=== PATIENT | female | born 1960 | race Caucasian/White ===

== ENCOUNTER 2018-02-26 14:55 | Observation (INO) | payer BC, SELFPAY ==
[2018-02-26] VITALS (23 sets, daily range): BP systolic 112–166; BP diastolic 70–110; PULSE 69–132; RESP 10–26; TEMP 36.4–37.1; O2SAT 92–99; BMI 31.1; BMI 29.4; BMI 29.5
--- NOTE | 2018-02-26 15:11 | EKG12_ITS ---
Test Reason : CP Blood Pressure : / mmHG Vent. Rate : 079 BPM Atrial Rate : 079 BPM P-R Int : 106 ms QRS Dur : 082 ms QT Int : 404 ms P-R-T Axes : 073 047 045 degrees QTc Int : 463 ms Sinus rhythm with sinus arrhythmia with short CO Nonspecific ST abnormality Abnormal ECG Confirmed by TAWANDA SALVADOR, QUIQUE ([id number]), editor at large KAREN WEEKS ([id number]) on 03/01/2018 2:31:33 PM Referred By: MICHAEL Confirmed By:QUIQUE NEFF MD
--- NOTE | 2018-02-26 15:13 | RAD_ITS ---
STUDY: X-RAY CHEST REASON FOR EXAM: Female, 58 years old. Chest pain. TECHNIQUE: Single AP portable view of the chest. COMPARISON: None. FINDINGS: EKG electrodes are seen. The lungs are clear and expanded. Scattered calcified granulomas. There is no demonstrated pleural abnormality. Normal size heart. Normal mediastinum and yen. Normal visualized pulmonary arteries. There is atherosclerotic tortuosity of the aortic arch and descending thoracic aorta. There are degenerative changes of the visualized thoracic spine. Normal visualized ribs, clavicles, and shoulders. There is no demonstrated abnormality of the visualized soft tissue structures of the upper abdomen. RAD/Chest 1 View (Portable) IMPRESSION: Normal x-ray examination of the chest. Electronically Signed: Monty Quiros MD at 15:34 EST Tel [phone], Service support ,
--- NOTE | 2018-02-26 15:16 | EKG12_ITS ---
Test Reason : REPEAT EKG Blood Pressure : / mmHG Vent. Rate : 077 BPM Atrial Rate : 077 BPM P-R Int : 136 ms QRS Dur : 084 ms QT Int : 418 ms P-R-T Axes : 060 032 047 degrees QTc Int : 473 ms Normal sinus rhythm Normal ECG Confirmed by TAWANDA SALVADOR, QUIQUE ([id number]), marketing editor KAREN WEEKS ([id number]) on 03/01/2018 2:31:17 PM Referred By: MICHAEL Confirmed By:QUIQUE NEFF MD
--- NOTE | 2018-02-26 15:19 | ED.DCSUM_ITS ---
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 She [place] in to [place] on [place]. Patient states she was at work around 11 this morning when she started feeling nauseated and lightheaded. After returning from lunch where she did not eat much because of her nausea, she started developing tingling in her left hand and some tightness in the left lower ribs. She left work to go back to her hotel but stated the pain started to come up into her left chest and EMS was called. Patient does report similar episodes in the past, but never this severe. She did have one episode where she fainted. She states she had a workup done but nothing was found. She denies ever having a prior heart cath or stress test. Past history is significant for hypertension. She does take a baby aspirin daily. Physical Examination: Vital signs reveal blood pressure 157/86, temperature 97.9, heart rate 84, respiratory rate 26, pulse ox 98% on room air. Patient is lying in bed. She is anxious. At time of my examination her respiratory rate is 18. Head neck examination reveals dry lips, but otherwise unremarkable. Heart is regular rate and rhythm. Lungs sounds are clear. Abdomen is soft nontender. Test Results: EKG is sinus at [address] depression in V4 and V5. Portable chest x-ray is unremarkable. CBC normal. Chemistry studies significant only for potassium 3.3. Glucose is 143. Troponin is less than 0.015. D-dimer 0.29. Emergency Department Course and Treatment: Patient had received aspirin and 1 sublingual nitro with EMS. Pain had increased from before after her initial nitro back up to an 8 at the time of my exam. EKG at that time did show ST depression as stated above. Patient was given additional sublingual nitro and after 2 sublingual nitro here in the ER her pain was a 0. EKG was repeated when she was rating her pain at a [address] segments had improved. Nitropaste was ordered. In spite of this patient has had periods where her pain gets very severe and she gets short of breath. She gets tachycardic up into the 130s and 140s with this, with sinus tachycardia. Repeat EKG during the episode did not show any further ST changes. At this point patient has been started on a nitro drip. I spoke with Dr. Salcedo. He asked that the patient be given 180 mg of Brilinta along with 25 mg of Lopressor. She had already been ordered Zofran for nausea as well as oral potassium. Dr. Salcedo will come see the patient and determine whether she needs to go to the [facility] [employer] [facility] today or tomorrow. Treatment Plan: [] Disposition: Admit Impression: Acute coronary syndrome This note was generated with [employer] dictation software. It may contain incorrect words, spelling, and punctuation that were not noted in review of the chart prior to signing ED Disposition - Plan for ED Patient: Chief Complaint: Chest Pain Referrals: [facility],Out of [NON-STAFF] -
[2018-02-26 15:20] LABS: Absolute Lymphocyte Count 1.59 X10^3/ul (0.83-4.51); Absolute Neutrophil Count 4.7 X10^3/uL (2.0-7.7); Basophil# 0.03 X10^3/uL; Basophil% 0.4 % (0-1); Eosinophils% 2.9 % (0-5); Hematocrit 39.7 % (37-47); Hemoglobin 13.4 g/dl (12.0-15.0); Lymphocyte # 1.59 X10^3/ul (4.0); Mean Corp Hgb Conc 33.8 g/gl (32-36); Mean Corpuscular Hgb 28.8 pg (27.0-32.0); Mean Corpuscular Volume 85.2 fL (81-99); Mean Platelet Vol. 10.2 fl (6.2-12.0); Monocyte# 0.33 X10^3/uL; Monocyte% 4.8 % (0-10); Neutrophil # 4.74 X10^3/uL (2.7-7.7); Neutrophil % 68.6 % (47-70); Platelet Count 259 K/mm3 (150-450); RBC Distribution Width CV 12.5 % (11.6-14.6); RBC Distribution Width SD 38.1 fl (35.1-43.9); Red Blood Count 4.66 M/mm3 (4.2-5.4); White Blood Count 6.9 K/mm3 (4.4-11.0)
[2018-02-26 15:21] LABS: POSITIVE COUNT NO; POSITIVE DIFFERENTIAL NO; POSITIVE MORPHOLOGY NO
[2018-02-26] MEDS: 0.9% Normal Saline 1,000 ML 150 ML IV (15:29)
--- NOTE | 2018-02-26 15:30 | EKG12_ITS ---
Test Reason : REPEAT 3RD Blood Pressure : / mmHG Vent. Rate : 104 BPM Atrial Rate : 104 BPM P-R Int : 122 ms QRS Dur : 080 ms QT Int : 376 ms P-R-T Axes : 059 053 048 degrees QTc Int : 494 ms Sinus tachycardia Nonspecific ST abnormality Abnormal ECG Confirmed by TAWANDA SALVADOR, QUIQUE ([id number]), commercial production editor KAREN WEEKS ([id number]) on 03/01/2018 2:31:00 PM Referred By: MICHAEL Confirmed By:QUIQUE NEFF MD
[2018-02-26 15:41] LABS: Anion Gap 13 (5-15); BUN 13 mg/dL (7-18); Calcium,Total 8.9 mg/dL (8.5-10.1); Chloride 105 mmol/L (98-107); Creatinine, Serum 0.93 mg/dL (0.55-1.02); EST Glomerular Filtration Rate 66 mL/min (>60); Est Glom Filt Rate - Afr Amer 80 mL/min (>60); Estimated Creatinine Clearance 54.54 ml/min; Glucose 143 mg/dL (74-106); Potassium 3.3 mmol/L (3.5-5.1); Sodium Level 139 mmol/L (136-145)
[2018-02-26 15:42] LABS: D-Dimer Quantitative (DVT/PE) 0.29 FEU/ug/m (0.27-0.49)
[2018-02-26] MEDS: Nitroglycerin Oint 1 INCH PACKET TRANSDERM. (15:43)
[2018-02-26] MEDS: Ondansetron 4 MG/2 ML Vial IV ×2 (15:49→19:43)
--- NOTE | 2018-02-26 16:10 | ED.RN ---
NITRO PASTE OFF. NITRO DRIP UP
[2018-02-26] MEDS: TICAGRELOR 90 MG TABLET 180 MG PO (16:17)
[2018-02-26] MEDS: Metoprolol Tartrate 25 MG Tablet PO (16:24)
--- NOTE | 2018-02-26 16:55 | PCM.CONS.C ---
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 The patient states she has a history of hypertension. Otherwise to the best of her knowledge she has no known cardiovascular history. She does not believe she has undergone cardiovascular evaluation in the past. She states she has been active and a runner without any obvious difficulties up until last week. 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 She states she felt as if someone was sitting on her chest or there was a lot of pressure on her chest. She had associated shortness of breath, nausea, and dizziness. She states she could not get comfortable. She went back to her hotel room and subsequently summoned the EMS system. She was then evaluated by the EMS system and not to the [facility] emergency department for further evaluation. She was evaluated by the emergency department staff. She was found to have ongoing symptoms and waxing and waning ST segment depression in anterior lateral precordial leads. She was treated with aspirin and nitroglycerin sublingual with partial relief but not total relief. She was then placed on additional medical therapy with IV nitroglycerin which has been requiring increasing dosages. She continued to have ongoing symptoms. She denies any history of orthopnea or PND or peripheral pitting edema. There has been no near syncope or syncope. She has had no radiation to her back. She has undergone evaluation with a d-dimer. It was negative. Her chest x-ray was performed. There appeared to be on preliminary evaluation no acute cardiopulmonary disease process. [] Past Medical History Allergies/Adverse Reactions: Allergies No Known Allergies Allergy (Verified 02/26/18 15:03) Home Medications: Ambulatory Orders Medication Instructions Recorded Aspirin [Aspirin, Baby] 81 mg PO DAILY@0800 02/26/18 Lisinopril/Hydrochlorothiazide 1 each PO DAILY 02/26/18 [Lisinopril-Hctz 20-25 mg Tab] Past Medical History (Chronic Problems): Chronic Problems HTN (hypertension) (Chronic) - *Family History Maternal History Items: - - Liver cancer. Paternal History Items: Heart Disease Smoking Status: Never smoker Alcohol: None Drugs: None Review of Systems - Review of Systems General: Denies: Fever, Night Sweats, Fatigue Cardiovascular: Reports: Dizziness. Denies: Chest Discomfort, Shortness of Breath, Orthopnea, PND, Peripheral Edema, Palpitations, Lightheadedness, Near Syncope, Syncope Gastrointestinal: Reports: Nausea. Denies: Hematemesis, Hematochezia, Melena Genitourinary: Denies: Dysuria, Hematuria Skin: Denies: Rash Subjectve: This is a 58-year-old white female who appears to be uncomfortable and continuing with chest discomfort despite ongoing medical therapy. Objective: Vital Signs Temp Pulse Resp BP Pulse Ox 97.9 F 91 22 H 160/95 H 99 02/26/18 14:56 02/26/18 16:27 02/26/18 16:27 02/26/18 16:27 02/26/18 16:27 Oxygen Flow Rate (L/min) 3 Oxygen Delivery Method Room Air Weight: 176 lb 2.389 oz Body Mass Index (BMI) 31.1 General: Awake, Alert, Oriented x 3, Cooperative, No Acute Distress HEENT: Atraumatic, Normocephalic, PERRL, EOMI, Sclera Non Icteric Oral: Moist Mucosa Neck: Supple, Good ROM, No JVD Lungs: Clear to auscultation Cardiovascular: Regular Rhythm, Normal S1, Normal S2 Vascular: No Carotid Bruits Abdomen: Bowel Sounds Present, Soft, Non Tender Extremities: No Cyanosis, No Clubbing, No edema Neurological: No Focal Motor or Sensory Deficit Psych/Mental Status: Appropriate 02/26/18 15:05: WBC 6.9, RBC 4.66, Hgb 13.4, Hct 39.7, MCV 85.2, MCH 28.8, MCHC 33.8, RDW 12.5, RDW Differential 38.1, Plt Count 259, MPV 10.2, Immature Gran % (Auto) 0.300, Neut % (Auto) 68.6, Lymph % (Auto) 23.0, [place] % (Auto) 4.8, Eos % (Auto) 2.9, Baso % (Auto) 0.4, Absolute Neuts (auto) 4.7, Total Counted Not Reportable 02/26/18 15:05: D-Dimer Quant (PE/DVT) 0.29 02/26/18 15:05: Sodium 139, Potassium 3.3 L, Chloride 105, Carbon Dioxide 21.0, Anion Gap 13, BUN 13, Creatinine 0.93, Est GFR (MDRD) Af Amer 80, Est GFR (MDRD) Non-Af 66, BUN/Creatinine Ratio 14.0, Glucose 143 H, Calcium 8.9, Troponin I < 0.015 Rhythm: Sinus rhythm EKG: Sinus rhythm; ST segment abnormality (V4-V6) CXR: As noted above Assessment/Plan 1. Unstable angina pectoris The patient presents with a history compatible with unstable angina pectoris. She has cardiovascular risk factors which include hypertension. She also presented with waxing and waning ST segment depression changes. This raises concerns of underlying cardiovascular disease process. She has been evaluated for the possibility of thromboembolic events based upon her recent travels. Her d-dimer was negative. Thus far there is no evidence of underlying great vessel disease. At the present time despite ongoing medical therapy with aspirin, IV nitroglycerin, beta-blockers, and the initiation of oral antiplatelets with Brilinta, she continues with chest discomfort requiring increasing IV nitroglycerin dosage. Thus at the present time is felt the patient should be considered for further diagnostic cardiac catheterization. The procedure and risks were discussed with her. She was agreeable to this approach. 2. Abnormal echocardiogram The patient does have an abnormal echo cardiogram based upon her ST segment depression. This is waxed and waned in correlation with her symptoms. This does raise concern of unstable angina pectoris. Thus she will undergo continue medical therapy and further evaluation care as noted above. 3. Hypertension The patient has a long-standing history of hypertension. She has been on medical management with lisinopril. She will continue to be followed with medications being adjusted as deemed appropriate. Comment: The above was discussed with the patient, Dr. Bateman of the [facility] emergency department staff, and Dr. Villanueva of the [facility] hospital staff. Dragon disclaimer
--- NOTE | 2018-02-26 17:17 | HP.PCM_ITS ---
Problem List (1) Unstable angina Status: Acute (2) HTN (hypertension) Status: Chronic Qualifiers: Hypertension type: essential hypertension Qualified Code(s): I10 - Essential (primary) hypertension (3) Abnormal electrocardiogram Status: Acute History of Present Illness Date of Admission: 02/26/18 Chief Complaint: Chest pain. The patient is a 58 year old F with past medical history as mentioned above presented to the ED because of chest pain. Her symptoms started around noon today when she was at work sitting at her desk, started feeling dizzy, lightheaded and nauseated. She thought that she did not eat and that is why she is nauseated. She did not feel well after that and she decided to go back to [facility] where she is staying. 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 In the emergency department, her vital signs were stable. Her routine blood work was remarkable for potassium of 3.3, otherwise normal. When the patient arrived to the ER, she had chest pain and at the same time, EKG done and revealed T wave inversion in lead V4. After her pain subsided, repeat EKG done and does T wave inversion in leads V4 disappeared. Her troponin was negative. Chest x-ray showed no acute findings. Patient was evaluated by cardiology, Dr. Salcedo, decision was made to take patient for emergent cardiac catheterization. She is being admitted for unstable angina for evaluation and treatment. Past Medical History Past Medical History (Chronic Problems): Chronic Problems HTN (hypertension) (Chronic) Allergies No Known Allergies Allergy (Verified 02/26/18 15:03) Home Medications: Ambulatory Orders Medication Instructions Recorded Aspirin [Aspirin, Baby] 81 mg PO DAILY@0800 02/26/18 Lisinopril/Hydrochlorothiazide 1 each PO DAILY 02/26/18 [Lisinopril-Hctz 20-25 mg Tab] Surgical History: hysterectomy, - - section x2. 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 Paternal History Items: Heart Disease Review of Systems Constitutional: Denies: Anorexia, Chills, Fever, Weakness Eyes: Denies: Blurred vision, Double vision, Drainage, Redness HEENT: Denies: Difficulty Hearing, Ear Pain, Eye Pain, Nasal Congestion, Sore Throat Cardiovascular: Reports: Chest Pain, Light Headedness. Denies: Chest Tightness, Edema, Heaviness, Orthopnea, Paroxysmal Noc. Dyspnea, Syncope Respiratory: Reports: Shortness of breath at rest. Denies: Cough, Hemoptysis, Sputum production, Wheezing Gastrointestinal: Reports: Nausea. Denies: Abdominal Pain, Constipation, Diarrhea, Vomiting Genitourinary: Denies: Dysuria, Frequency, Hematuria Musculoskeletal: Denies: Arm Pain, Back Pain, Foot Pain Skin: Denies: Dryness, Rash Neurological: Denies: Balance problems, Double vision, Change in Speech, Slurred speech, Confusion, Focal weakness, Headaches, Incoordination Psychiatric: Denies: Anxiety, Depression Endocrine: Denies: Change in Body Habitus, Polydipsia VTE Information - Inpt Only VTE Present on Admission: No VTE Mechan Device Prophylaxis: None VTE Pharm Prophylaxis ordered?: No Patient Problems: Active and Suspected Problems Unstable angina (Acute) Abnormal electrocardiogram (Acute) - Physical Exam General: Alert, Oriented x3, Cooperative, No apparent distress HEENT: Atraumatic, PERRLA, EOMI, Normocephalic Oral: Moist Mucosa, No Gingival or Mucosal Lesions/ Ulcerations Neck: Supple, No JVD, Negative Carotid Bruits, Trachea Midline, Thyroid Normal Size and Texture Lungs: Clear to auscultation, Normal air movement, No rhonchi, No wheeze, No rales Cardiovascular: Regular rate, Regular Rhythm, Normal S1, Normal S2, PMI Normal Abdomen: Bowel Sounds Present, Soft, Non Tender, Non-Distended, No Hepato- splenomegaly Extremities: No clubbing, No cyanosis, No edema Skin: No rashes, No breakdown Lymphatic: No Cervical, Supraclavicular, or Inguinal Adenopathy Neurological: Cranial nerves II-XII grossly intact, Motor Exam 5/5 strength throughout Psych/Mental Status: Normal Affect, Appropriate, Alert and oriented to time, place, person, mood and affect Vital Signs Temp Pulse Resp BP Pulse Ox 97.9 F 91 20 H 147/89 H 98 01/22/19 14:56 02/26/18 16:52 02/26/18 16:52 02/26/18 16:52 02/26/18 16:52 Oxygen Flow Rate (L/min) 3 Oxygen Delivery Method Room Air Weight: 176 lb 2.389 oz Body Mass Index (BMI) 31.1 Laboratory Tests Past 24 Hrs 02/26/18 02/26/18 02/26/18 15:05 15:05 15:05 WBC 6.9 RBC 4.66 Hgb 13.4 Hct 39.7 MCV 85.2 MCH 28.8 MCHC 33.8 RDW 12.5 RDW Differential 38.1 Plt Count 259 MPV 10.2 Immature Gran % (Auto) 0.300 Neut % (Auto) 68.6 Lymph % (Auto) 23.0 [place] % (Auto) 4.8 Eos % (Auto) 2.9 Baso % (Auto) 0.4 Absolute Neuts (auto) 4.7 Absolute Lymphs (auto) 1.59 Total Counted Not Reportable D-Dimer Quant (PE/DVT) 0.29 Sodium 139 Potassium 3.3 L Chloride 105 Carbon Dioxide 21.0 Anion Gap 13 BUN 13 Creatinine 0.93 Estim Creat Clear Calc 54.54 Est GFR (MDRD) Af Amer 80 Est GFR (MDRD) Non-Af 66 BUN/Creatinine Ratio 14.0 Glucose 143 H Calcium 8.9 Troponin I < 0.015 Clinical Impression(s) from Imaging Studies Chest X-Ray 02/26/18 15:13 IMPRESSION: Normal x-ray examination of the chest. Electronically Signed: Monty Quiros MD at 15:34 EST Tel [phone], Service support , Assessment/Plan All Active Problems Unstable angina (Acute) Abnormal electrocardiogram (Acute) This is a 58 years old female patient presented to the emergency room because of chest pain, found to have EKG changes that resolved and she is being admitted for unstable angina for evaluation and treatment. #1 unstable angina/abnormal EKG: EKG reviewed as above, first troponin is negative. Chest x-ray showed no acute findings. Cardiology consulted and evaluated the patient in the ED and decision made to take patient for emergent cardiac catheterization. Plan: Admit to PCU, cardiac monitoring, serial cardiac enzymes, repeat EKG tomorrow morning, IV fluids, IV morphine as needed for pain, Zofran as needed, continue aspirin, start Lipitor, fasting lipid profile, continue lisinopril and HCTZ, cardiology consult as above, repeat CBC and BMP tomorrow morning. #2 hypokalemia: Likely because of HCTZ, replace potassium with IV potassium chloride, repeat BMP tomorrow morning. #3 hypertension: Blood pressure stable, continue lisinopril and HCTZ. #4 DVT prophylaxis: SCDs. This note was generated with [employer] dictation software. It may contain incorrect words, spelling, and punctuation that were not noted in checking the note before signing. Code Visit Inpatient E&M: 74294 Init Hosp L3
--- NOTE | 2018-02-26 17:30 | ED.RN ---
PAIN CURRENTLY AT 1
--- NOTE | 2018-02-26 18:30 | CT_ITS ---
STUDY: CTA CHEST REASON FOR EXAM: Female, 58 years old. Angina. RADIATION DOSAGE (If Supplied By Facility): CTDIvol = ( 10.28 ) mGy, DLP = ( 358.68 ) mGycm TECHNIQUE: The examination was performed with the intravenous administration of 100 ml of Isovue 370 contrast material. Post-processing of the angiographic images was performed, with multiplanar reformation and 3D reconstruction. Individualized dose optimization techniques were used for this CT. COMPARISON: None. FINDINGS: Normal enhancement of the main pulmonary artery and right and left pulmonary arteries. Normal enhancement of the bilateral peripheral pulmonary arteries. There is no demonstrated pulmonary embolism. Normal thoracic aorta and visualized great vessels. There is no demonstrated aortic dissection. Normal heart and pericardium. Normal mediastinum. Normal hilar regions. Normal visualized trachea and bronchi. The lungs are well expanded. Normal pulmonary parenchyma. Normal pleura. Normal chest wall structures. Normal osseous structures. Normal visualized upper abdomen. CT/Chest WITH Contrast IMPRESSION: Normal CTA chest examination, without a demonstrated pulmonary embolism or arterial dissection. Electronically Signed: Blane Almonte, at 20:07 EST Tel , Service support ,
--- NOTE | 2018-02-26 18:30 | ECHOD_ITS ---
Reason For Study: Chest Pain Procedure This was a 2D Doppler, Color Flow transthoracic echocardiogram. The exam was of adequate technical quality. Exam performed portable in patient room. Left Ventricle Normal LV size. Left ventricular systolic function is normal. The estimated ejection fraction is 60 %. Transmitral doppler flow suggestive of impaired relaxation of left ventricle. No regional wall motion abnormalities noted. Right Ventricle Normal RV size. Normal systolic function. Atria The left atrium is mildly enlarged. Normal right atrium. No doppler evidence for ASD. Mitral Valve There is no mitral annular calcification. Normal mitral valve. Trivial mitral valve insufficiency. Tricuspid Valve Normal tricuspid valve. Mild tricuspid valve insufficiency. Right ventricular systolic pressure estimated to be 30 mmHg. Aortic Valve Trisinus/trileaflet aortic valve. Mild diffuse aortic valve thickening. Pulmonic Valve The pulmonic valve is not well visualized. Trivial pulmonic valve insufficiency. Great Vessels Normal sized aortic root. Pericardium/Pleural No pericardial effusion. MMode/2D Measurements & Calculations LVIDd: 4.1 cm IVSd: 1.2 cm Ao root diam: 2.9 cm LVIDs: 2.7 cm LVPWd: 1.1 cm RVDd: 3.6 cm FS: 34.8 % LAV(MOD-bp): 49.2 ml LVAd ap4: 21.2 cm2 SV(MOD-sp4): 32.1 ml LAV(MOD-bp) Indexed: 26.9 ml/m2 EDV(MOD-sp4): 52.0 ml LAV(MOD-sp2): 38.4 ml EDV(sp4-el): 52.5 ml LAV(MOD-sp4): 61.9 ml LVAs ap4: 12.0 cm2 ESV(MOD-sp4): 19.9 ml ESV(sp4-el): 19.6 ml EF(MOD-sp4): 61.7 % EF(sp4-el): 62.7 % SV(sp4-el): 32.9 ml LA A4 area: 19.5 cm2 LA dimension(2D): 3.3 cm RA A4 area: 9.5 cm2 Doppler Measurements & Calculations MV E max marty: 94.7 cm/sec Lat Peak E' Marty: 9.0 cm/sec Med Peak E' Marty: 7.2 cm/sec MV A max marty: 114.4 cm/sec E/E' lat: 10.6 E/E' med: 13.1 MV E/A: 0.83 Ao V2 max: 144.3 cm/sec LV V1 max: 109.8 cm/sec PA V2 max: 77.6 cm/sec Ao max P.3 mmHg LV V1 max P.8 mmHg Ao V2 mean: 97.7 cm/sec Ao mean P.2 mmHg Ao V2 VTI: 30.5 cm TR max marty: 260.5 cm/sec TR max P.1 mmHg Interpretation Summary Left ventricular systolic function is normal. The estimated ejection fraction is 60 %. The left atrium is mildly enlarged. Trivial mitral valve insufficiency. Mild tricuspid valve insufficiency. Mild diffuse aortic valve thickening. Trivial pulmonic valve insufficiency. Right ventricular systolic pressure estimated to be 30 mmHg. Ordering Physician: uLkas Salcedo Performed By: Sophie Burch, RDCHASE, RVT
--- NOTE | 2018-02-26 19:04 | CL.D_ITS ---
Patient Name: RADHAMES RUBIN Study Date: 02/26/2018 Performing: Lukas Salcedo MD Ht: 63 inches 160 cm : 1960 Wt: 176.6 lbs 80 kg Age: 58 Gender: female BSA: 1.83 PROCEDURE(S) PERFORMED [id number]/LV CLINICAL PROFILE AND INDICATIONS Indications: Worsening Angina, Suspected CAD Heart Failure: None Stress/Imaging Stress/Image Study Performed: No Angina Classification Anginal Classification w/in 2 Weeks: CCS IV CAD Presentations: Unstable angina. CONCLUSIONS Elevated Left Ventricular End Diastolic Pressure Normal LV size, wall motion,and systolic function LVEF: by LV gram 65 % Normal coronary arteries RECOMMENDATIONS Risk factor modification Medical therapy DESCRIPTION OF PROCEDURE The patient arrived to the procedure lab. The risks and benefits of the procedure as well as a full d escription of our services here and current unavailability of surgical backup were fully explained to the patient and/or their significant other prior to the catheterization. The Timeout was completed, verifying the correct patient and procedure. The patient's procedural site was prepped and draped in the usual fashion. Local anesthetic was given subcutaneously to right groin region with Lidocaine 2%. Using a modified Seldinger technique, arterial access was obtained via the right femoral artery, a 4 Fr sheath was inserted Left Coronary Artery selective angiography was performed in multiple views us ing a 4 Fr. JL5 catheter. Right Coronary Artery selective angiography was then performed in multiple views using a 4 Fr. 3DRC catheter. Left Ventriculography was performed in PARRA projection using a 4 Fr . Pigtail catheter. LV to AO pullback pressures were then recorded.The arterial sheath was pulled and manual compression applied until hemostasis is achieved. CORONARY ANGIOGRAPHY DOMINANCE: Right Dominant LEFT HEART ASSESSMENT Left Ventricular Ejection Fraction: 65% Normal LV wall motion Elevated Left Ventricular End Diastolic Pressure LVEDP: 22 mmHg LEFT MAIN: Angiographically normal LEFT ANTERIOR DECENDING ARTERY: Angiographically normal CIRCUMFLEX ARTERY: Angiographically normal RIGHT CORONARY ARTERY: Angiographically normal VALVE FINDINGS: Normal Aortic Valve function Normal Mitral Valve function AORTIC ROOT: Angiographically normal COMPLICATIONS No Complications PROCEDURE MEDICATIONS Versed 1 mg IV Fentanyl 50 mcg IV Oxygen: 2 L/min via nasal cannula Nitro glycerin 25mg / 250ml D5W @ 12 mcg/min IV started, arrived from ED 02/26/2018 17:51:59 Nitro glycerin 25mg / 250ml D5W @ 10 mcg/min (decreased rate) 02/26/2018 18:27:52 SUMMARY OF HEMODYNAMIC DATA Time AIR REST ECG 17:49:02 AO 128/93 (110) SA 18:01:25 LV 143/8, 29 18:07:44 LV 143/4, 22 18:07:50 LV 156/15, 29 18:08:44 LVp 155/15, 24 18:08:48 AOp 0/-11 (68) 18:08:53 Signed By Lukas Salcedo MD On 02/26/2018 7:03:21 PM Lukas Salcedo MD
[2018-02-26] MEDS: 0.9% Normal Saline 1,000 ML 100 ML IV (19:43)
[2018-02-26] MEDS: 0.9% NaCl Peripheral Flush Adult/Peds IV ×2 (19:43→21:48)
[2018-02-26] MEDS: Potassium Chloride 10mEq/100mL 10 MEQ/100 ML IV.SOLN. 100 MEQ IV BOLUS ×2 (20:00→21:14)
--- NOTE | 2018-02-26 20:21 | NURSING ---
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 During CT patient developed severe abdominal pain and nausea. VSS remained stable. Nitro titrated. Given zofran upon arrival back to the floor.
[2018-02-26] MEDS: Atorvastatin Calcium 40 MG Tablet PO (21:48)
[2018-02-26 22:26] LABS: AST(SGOT) 23 U/L (15-37); Alanine Aminotransfer ALT/SGPT 20 U/L (13-56); Albumin, Serum 3.3 g/dL (3.2-5.0); Alkaline Phosphatase 48 U/L (45-117); Amylase 34 U/L (25-115); Bilirubin, Direct 0.06 mg/dL (0.00-0.30); Globulin 3.3 g/dL (2.2-4.2); Lipase 99 U/L (73-393); Protein, Total 6.6 g/dL (6.4-8.2)
--- NOTE | 2018-02-26 23:15 | NURSING ---
Bedrest up at 2230; walked patient in halls at 2305; right cath site C/D/I and soft. No C/O pain.
[2018-02-27] VITALS (13 sets, daily range): BP systolic 103–139; BP diastolic 58–89; PULSE 62–81; RESP 12–22; TEMP 36.3–37.2; O2SAT 96–99
[2018-02-27] MEDS: Acetaminophen 325 MG Tablet 650 MG PO (00:01)
[2018-02-27] MEDS: 0.9% Normal Saline 1,000 ML 100 ML IV (05:07)
--- NOTE | 2018-02-27 05:55 | EKG12_ITS ---
Test Reason : AM Blood Pressure : / mmHG Vent. Rate : 073 BPM Atrial Rate : 073 BPM P-R Int : 154 ms QRS Dur : 086 ms QT Int : 402 ms P-R-T Axes : 076 038 038 degrees QTc Int : 442 ms Normal sinus rhythm Normal ECG Confirmed by TAWANDA SALVADOR, QUIQUE ([id number]), photograph editor KAREN WEEKS ([id number]) on 03/01/2018 2:39:42 PM Referred By: [facility] Confirmed By:QUIQUE NEFF MD
--- NOTE | 2018-02-27 05:55 | US_ITS ---
STUDY: ABDOMINAL ULTRASOUND - RIGHT UPPER QUADRANT REASON FOR VISIT: Female, 58 years old. Abdominal/chest pain. Nausea x 2 days. TECHNIQUE: Ultrasound evaluation of the right upper quadrant was performed with real-time and static turner-scale imaging. TECHNICAL QUALITY: Adequate. COMPARISON: None. FINDINGS: Liver: The liver measures 18.5 cm. There is normal echogenicity of the liver. The bile ducts are within normal limits. There is hepatic color flow. The direction of portal flow is hepatopetal. There is no demonstrated mass lesion. Gallbladder: Normal distended gallbladder. The gallbladder wall measures 2.8 mm. There is a negative sonographic Ulloa's sign. There is no pericholecystic fluid. There is a 2 x 3 mm nonshadowing rounded soft tissue echogenicity along the inferior wall near the gallbladder fundus that may be a small polyp. Common Bile Duct (C.B.D.): The common bile duct measures 4.8 mm. Pancreas: Normal size of the head, body and tail of the pancreas. There is normal echogenicity of the pancreas. There is no demonstrated pancreatic mass or cyst. Right Kidney: Normal size of the right kidney. The right kidney measures 11.8 x 5.2 x 4.5 cm. Normal renal cortex. The right cortex measures 1.5 cm. There is no demonstrated renal mass or cyst. There is no right hydronephrosis. US/Gallbladder IMPRESSION: 2-3 mm polyp in gallbladder, otherwise normal right upper quadrant ultrasound examination. Electronically Signed: Itz Aguillon MD at 13:27 EST , Service support ,
[2018-02-27 06:29] LABS: Hematocrit 36.5 % (37-47); Mean Corp Hgb Conc 32.9 g/gl (32-36); Mean Corpuscular Hgb 28.8 pg (27.0-32.0); Mean Corpuscular Volume 87.5 fL (81-99); Mean Platelet Vol. 10.5 fl (6.2-12.0); Platelet Count 242 K/mm3 (150-450); RBC Distribution Width CV 12.9 % (11.6-14.6); RBC Distribution Width SD 39.9 fl (35.1-43.9); Red Blood Count 4.17 M/mm3 (4.2-5.4); White Blood Count 9.1 K/mm3 (4.4-11.0)
[2018-02-27 06:37] LABS: Scan Indicated on CBC? Y/N NO
[2018-02-27 06:38] LABS: ALB/GLOB Ratio 0.9 RATIO (0.9-2.4); AST(SGOT) 16 U/L (15-37); Alanine Aminotransfer ALT/SGPT 20 U/L (13-56); Albumin, Serum 3.2 g/dL (3.2-5.0); Alkaline Phosphatase 49 U/L (45-117); Anion Gap 8 (5-15); BUN 11 mg/dL (7-18); BUN/Creat Ratio 14.6 RATIO (10-20); Calcium,Total 8.6 mg/dL (8.5-10.1); Chloride 114 mmol/L (98-107); Cholesterol 177 mg/dL (200); Creatinine, Serum 0.76 mg/dL (0.55-1.02); EST Glomerular Filtration Rate 84 mL/min (>60); Est Glom Filt Rate - Afr Amer 101 mL/min (>60); Estimated Creatinine Clearance 66.74 ml/min; Globulin 3.4 g/dL (2.2-4.2); Glucose 103 mg/dL (74-106); High Density Lipoprotein 50 mg/dL; Potassium 3.8 mmol/L (3.5-5.1); Protein, Total 6.6 g/dL (6.4-8.2); Sodium Level 145 mmol/L (136-145); Triglycerides 96 mg/dL; Very Low Density Lipoprotein 19 mg/dL (5-40)
--- NOTE | 2018-02-27 09:29 | PCM.DC ---
- Discharge Diagnoses Current Active Problems: Current Active and Chronic Problems Unstable angina (Acute) HTN (hypertension) (Chronic) Abnormal electrocardiogram (Acute) Reason(s) for Visit for Discharge Instructions: Chest pain You will use the following diet at home:: Cardiac Your food should be the consistency of: Regular Your liquids should be the consistency of: Regular/Thin Discharge Activity: Return to Normal Activity Allergies/Adverse Reactions: Allergies No Known Allergies Allergy (Verified 02/26/18 15:03) Medications to take at Discharge Aspirin [Aspirin, Baby] 81 mg PO DAILY@0800 02/26/18 Lisinopril/Hydrochlorothiazide [Lisinopril-Hctz 20-25 mg Tab] 1 each PO DAILY 02/26/18 Atorvastatin Calcium [Lipitor] 40 mg PO QHS #30 tablet 02/27/18 The following prescriptions were given: Atorvastatin Calcium [Lipitor] 40 mg PO QHS #30 tablet Primary Care Physician: [facility] Doctor,Out of [NON-STAFF] - Please follow up with your Primary Care Physician in: within 1-2 weeks of discharge Test Results: Test results from this visit will be discussed in further detail at your follow-up appointment, if applicable. Proposed Discharge Date: 02/27/18
--- NOTE | 2018-02-27 09:30 | PCM.DC.SUM ---
Discharge Date and Diagnosis Date of Admission: 02/26/18 Date of Discharge: 02/27/18 - Primary Discharge Diagnosis Active and Suspected Problems Unstable angina (Acute) Abnormal electrocardiogram (Acute) Hypokalemia - Secondary Discharge Diagnosis Chronic Problems HTN (hypertension) (Chronic) Hospital Course and Treatment Imaging Results: 02/27/18 05:55 US Gallbladder [Gallbladder] [US] Routine Cardiology Operations: None Procedures: 2-D Echocardiogram, Cardiac catheterization Summary of Care Provided: The patient is a 58 year old F with PMHx of hypertension who comes in with chest pain. Her symptoms started at work with dizziness and nausea. Her vitals was stable. Her admitting EKG showed waxing and waning ST-T segments. D-dimer and chest x-ray were negative. Patient was seen by cardiology, underwent cardiac catherization that was normal with normal EF. Patient was kept on the telemetry bed, with no acute events overnight. She had an ultrasound of the gallbladder that showed a 2-3mm polyp, otherwise normal. Patient was discharged and 2 days work excuse was given. Subjective: Patient was seen and examined. Denies any new complains. Denies chest pain, SOB, palpitations, dizziness. - Physical Exam General: Alert, Oriented x3, Cooperative, No apparent distress HEENT: Atraumatic, PERRLA, EOMI, Normocephalic Oral: Moist Mucosa Neck: Supple, No JVD, Negative Carotid Bruits Lungs: Clear to auscultation, Normal air movement Cardiovascular: Regular rate, Regular Rhythm, Normal S1, Normal S2, No murmurs Abdomen: Bowel Sounds Present, Soft, Non Tender, Non-Distended, No Hepato-splenomegaly Extremities: No edema Skin: No rashes, No breakdown Musculoskeletal: No Tenderness to Palpation of Joints or Extremities Lymphatic: No Cervical, Supraclavicular, or Inguinal Adenopathy Neurological: Cranial nerves II-XII grossly intact, Motor Exam 5/5 strength throughout Psych/Mental Status: Normal Affect, Appropriate Vital Signs Temp Pulse Resp BP Pulse Ox 99.0 F 69 15 116/72 98 02/27/18 07:05 02/27/18 07:20 02/27/18 07:05 02/27/18 07:05 02/27/18 07:35 Oxygen Flow Rate (L/min) 3 Oxygen Delivery Method Room Air Weight: 75.432 kg Body Mass Index (BMI) 29.4 Intake and Output for Last 24 Hours 02/25/18 02/26/18 02/27/18 23:59 23:59 23:59 Intake Total 1762.5 / 1762.5 Balance 1762.5 / 1762.5 Laboratory Tests Past 24 Hrs 02/26/18 02/26/18 02/26/18 15:05 15:05 15:05 WBC 6.9 RBC 4.66 Hgb 13.4 Hct 39.7 MCV 85.2 MCH 28.8 MCHC 33.8 RDW 12.5 RDW Differential 38.1 Plt Count 259 MPV 10.2 Immature Gran % (Auto) 0.300 Neut % (Auto) 68.6 Lymph % (Auto) 23.0 [place] % (Auto) 4.8 Eos % (Auto) 2.9 Baso % (Auto) 0.4 Absolute Neuts (auto) 4.7 Absolute Lymphs (auto) 1.59 Total Counted Not Reportable D-Dimer Quant (PE/DVT) 0.29 Sodium 139 Potassium 3.3 L Chloride 105 Carbon Dioxide 21.0 Anion Gap 13 BUN 13 Creatinine 0.93 Estim Creat Clear Calc 54.54 Est GFR (MDRD) Af Amer 80 Est GFR (MDRD) Non-Af 66 BUN/Creatinine Ratio 14.0 Glucose 143 H Calcium 8.9 Total Bilirubin Direct Bilirubin AST ALT Alkaline Phosphatase Troponin I < 0.015 Total Protein Albumin Globulin Albumin/Globulin Ratio Triglycerides Cholesterol LDL Cholesterol VLDL Cholesterol HDL Cholesterol Amylase Lipase 02/26/18 02/26/18 02/27/18 20:18 20:18 06:00 WBC 9.1 RBC 4.17 L Hgb 12.0 Hct 36.5 L MCV 87.5 MCH 28.8 MCHC 32.9 RDW 12.9 RDW Differential 39.9 Plt Count 242 MPV 10.5 Immature Gran % (Auto) Neut % (Auto) Lymph % (Auto) [place] % (Auto) Eos % (Auto) Baso % (Auto) Absolute Neuts (auto) Absolute Lymphs (auto) Total Counted D-Dimer Quant (PE/DVT) Sodium Potassium Chloride Carbon Dioxide Anion Gap BUN Creatinine Estim Creat Clear Calc Est GFR (MDRD) Af Amer Est GFR (MDRD) Non-Af BUN/Creatinine Ratio Glucose Calcium Total Bilirubin 0.40 Direct Bilirubin 0.06 AST 23 ALT 20 Alkaline Phosphatase 48 Troponin I < 0.015 Total Protein 6.6 Albumin 3.3 Globulin 3.3 Albumin/Globulin Ratio Triglycerides Cholesterol LDL Cholesterol VLDL Cholesterol HDL Cholesterol Amylase 34 Lipase 99 02/27/18 06:00 WBC RBC Hgb Hct MCV MCH MCHC RDW RDW Differential Plt Count MPV Immature Gran % (Auto) Neut % (Auto) Lymph % (Auto) [place] % (Auto) Eos % (Auto) Baso % (Auto) Absolute Neuts (auto) Absolute Lymphs (auto) Total Counted D-Dimer Quant (PE/DVT) Sodium 145 Potassium 3.8 Chloride 114 H Carbon Dioxide 23.0 Anion Gap 8 BUN 11 Creatinine 0.76 Estim Creat Clear Calc 66.74 Est GFR (MDRD) Af Amer 101 Est GFR (MDRD) Non-Af 84 BUN/Creatinine Ratio 14.6 Glucose 103 Calcium 8.6 Total Bilirubin 0.60 Direct Bilirubin AST 16 ALT 20 Alkaline Phosphatase 49 Troponin I Total Protein 6.6 Albumin 3.2 Globulin 3.4 Albumin/Globulin Ratio 0.9 Triglycerides 96 Cholesterol 177 LDL Cholesterol 108 VLDL Cholesterol 19 HDL Cholesterol 50 Amylase Lipase Discharge Diet: Low fat/ Low Cholesterol, 2000 mg Sodium Diet Discharge Activity: Return to Normal Activity Home Medications: Medications to take at Discharge Aspirin [Aspirin, Baby] 81 mg PO DAILY@0800 02/26/18 Lisinopril/Hydrochlorothiazide [Lisinopril-Hctz 20-25 mg Tab] 1 each PO DAILY 02/26/18 Atorvastatin Calcium [Lipitor] 40 mg PO QHS #30 tablet 02/27/18 Following Prescrptions Were Given to Patient: Atorvastatin Calcium [Lipitor] 40 mg PO QHS #30 tablet Primary Care Physician: [facility] Doctor,Out of [NON-STAFF] - Please follow up with your Primary Care Physician in: within 1-2 weeks of discharge Disposition: Home Minutes spent on discharge:: 40 Patient Condition:: Stable Medical Necessity - Tobacco Use Smoking Status: Never smoker Tobacco Use: Non-smoker Meaningful Use Info Meaningful Use Diagnoses (Choose all that apply): None applicable Code Visit OBSV E&M: 61972 Observation care discharge
[2018-02-27] MEDS: hydroCHLOROthiazide 25 MG Tablet PO (11:52)
[2018-02-27] MEDS: Lisinopril 20 MG Tablet PO (11:53)
[2018-02-27] MEDS: Aspirin 81 MG TAB.CHEW PO (11:53)
--- OUTSIDE RECORDS SUMMARY | 2018-04-30 21:36 | XMS RPT_ITS ---
:1960 Author Organization [facility] Care Team Providers Name Role Phone Primay Care Physicia, No Primary Care Unavailable Ashelfah, Ghasem Admitting Unavailable Moodispaw, Lukas Consulting Unavailable Paintsil, [place] Attending Unavailable Ashelfah, Ghasem Attending Unavailable Primay Care Physicia, No Primary Care Unavailable Pachceo Cary Consulting Unavailable Ashelfah, Ghasem Admitting Unavailable Paintsil, [place] Attending Unavailable Primay Care Physicia, No Primary Care Unavailable Moodispaw, Lukas Consulting Unavailable Paintsil, [place] Consulting Unavailable PROBLEMS PROBLEMS No Problem Records FoundPROCEDURES PROCEDURES No Procedure Records FoundRESULTS RESULTS DISCHARGE SUMMARY Observed: 02/27/2018 Status: F Source: [place] 2:55 PM [facility] Medical Records Department [address] [place] [address] Discharge Summary 02/27/18 0930 MR#: [id number] Acct: [id number] Name: RADHAMES RUBIN Rep #: [id number] : 1960 58 From: Bri Lee MD PCP: Care Physician, No Primary Status: DIS ANNEMARIE Y Location: [place] [address] Discharge Date and Diagnosis Date of Admission: 02/26/18 Date of Discharge: 02/27/18 - Primary Discharge Diagnosis Active and Suspected Problems Unstable angina (Acute) Abnormal electrocardiogram (Acute) Hypokalemia - Secondary Discharge Diagnosis Chronic Problems HTN (hypertension) (Chronic) Hospital Course and Treatment Imaging Results: 02/27/18 05:55 US Gallbladder [Gallbladder] [US] Routine Cardiology Operations: None Procedures: 2-D Echocardiogram, Cardiac catheterization Summary of Care Provided: The patient is a 58 year old F with PMHx of hypertension who comes in with chest pain. Her symptoms started at work with dizziness and nausea. Her vitals was stable. Her admitting EKG showed waxing and waning ST-T segments. D-dimer and chest x-ray were negative. Patient was seen by cardiology, underwent cardiac catherization that was normal with normal EF. Patient was kept on the telemetry bed, with no acute events overnight. She had an ultrasound of the gallbladder that showed a 2-3mm polyp, otherwise normal. Patient was discharged and 2 days work excuse was given. Subjective: Patient was seen and examined. Denies any new complains. Denies chest pain, SOB, palpitations, dizziness. - Physical Exam General: Alert, Oriented x3, Cooperative, No apparent distress HEENT: Atraumatic, PERRLA, EOMI, Normocephalic Oral: Moist Mucosa Neck: Supple, No JVD, Negative Carotid Bruits Lungs: Clear to auscultation, Normal air movement Cardiovascular: Regular rate, Regular Rhythm, Normal S1, Normal S2, No murmurs Abdomen: Bowel Sounds Present, Soft, Non Tender, Non-Distended, No Hepato-splenomegaly Extremities: No edema Skin: No rashes, No breakdown Musculoskeletal: No Tenderness to Palpation of Joints or Extremities Lymphatic: No Cervical, Supraclavicular, or Inguinal Adenopathy Neurological: Cranial nerves II-XII grossly intact, Motor Exam 5/5 strength throughout Psych/Mental Status: Normal Affect, Appropriate Vital Signs Temp Pulse Resp BP Pulse Ox 99.0 F 69 15 116/72 98 02/27/18 07:05 02/27/18 07:20 02/27/18 07:05 02/27/18 07:05 02/27/18 07:35 Oxygen Flow Rate (L/min) 3 Oxygen Delivery Method Room Air Weight: 75.432 kg Body Mass Index (BMI) 29.4 Intake and Output for Last 24 Hours Intake Total 1762.5 / 1762.5 Balance 1762.5 / 1762.5 Laboratory Tests Past 24 Hrs WBC 6.9 RBC 4.66 Hgb 13.4 Hct 39.7 MCV 85.2 WBC RBC Hgb Hct MCV MCH MCHC RDW RDW Differential Plt Count Discharge Diet: Low fat/ Low Cholesterol, 2000 mg Sodium Diet Discharge Activity: Return to Normal Activity Home Medications: Medications to take at Discharge Aspirin [Aspirin, Baby] 81 mg PO DAILY@0800 02/26/18 Lisinopril/Hydrochlorothiazide [Lisinopril-Hctz 20-25 mg Tab] 1 each PO DAILY 02/26/18 Atorvastatin Calcium [Lipitor] 40 mg PO QHS #30 tablet 02/27/18 Following Prescrptions Were Given to Patient: Atorvastatin Calcium [Lipitor] 40 mg PO QHS #30 tablet Primary Care Physician: Hermila Doctor,Out of [NON-STAFF] - Please follow up with your Primary Care Physician in: within 1-2 weeks of discharge Disposition: Home Minutes spent on discharge:: 40 Patient Condition:: Stable Medical Necessity - Tobacco Use Smoking Status: Never smoker Tobacco Use: Non-smoker Meaningful Use Info Meaningful Use Diagnoses (Choose all that apply): None applicable Code Visit OBSV E AND M: 32452 Observation care discharge 02/27/18 1454 <Electronically signed by Bri Lee MD> Date Bri Lee MD Cosigner Signature (if applicable): Date CC: No Primary Care Physician; Bri Lee MD Signed EMERGENCY DEPARTMENT Observed: 02/27/2018 Status: F Source: [place] SUMMARY 2:45 PM [facility] Medical Records Department [address] [place] [address] Emergency Department Summary 02/26/18 1516 MR#: [id number] Acct: [id number] Name: RADHAMES RUBIN Rep #: [id number] : 1960 58 From: Kate Bateman MD PCP: Care Physician, No Primary Status: DIS ANNEMARIE - ER Visit Summary Date of Service: 02/26/18 Chief Complaint: Chest pain History of Present Illness: The patient is a 58 F 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 She flew in to [place] on Sunday. Patient states she was at work around 11 this morning when she started feeling nauseated and lightheaded. After returning from lunch where she did not eat much because of her nausea, she started developing tingling in her left hand and some tightness in the left lower ribs. She left work to go back to her hotel but stated the pain started to come up into her left chest and EMS was called. Patient does report similar episodes in the past, but never this severe. She did have one episode where she fainted. She states she had a workup done but nothing was found. She denies ever having a prior heart cath or stress test. Past history is significant for hypertension. She does take a baby aspirin daily. Physical Examination: Vital signs reveal blood pressure 157/86, temperature 97.9, heart rate 84, respiratory rate 26, pulse ox 98% on room air. Patient is lying in bed. She is anxious. At time of my examination her respiratory rate is 18. Head neck examination reveals dry lips, but otherwise unremarkable. Heart is regular rate and rhythm. Lungs sounds are clear. Abdomen is soft nontender. Test Results: EKG is sinus at [address] depression in V4 and V5. Portable chest x-ray is unremarkable. CBC normal. Chemistry studies significant only for potassium 3.3. Glucose is 143. Troponin is less than 0.015. D-dimer 0.29. Emergency Department Course and Treatment: Patient had received aspirin and 1 sublingual nitro with EMS. Pain had increased from before after her initial nitro back up to an 8 at the time of my exam. EKG at that time did show ST depression as stated above. Patient was given additional sublingual nitro and after 2 sublingual nitro here in the ER her pain was a 0. EKG was repeated when she was rating her pain at a [address] segments had improved. Nitropaste was ordered. In spite of this patient has had periods where her pain gets very severe and she gets short of breath. She gets tachycardic up into the 130s and 140s with this, with sinus tachycardia. Repeat EKG during the episode did not show any further ST changes. At this point patient has been started on a nitro drip. I spoke with Dr. Salcedo. He asked that the patient be given 180 mg of Brilinta along with 25 mg of Lopressor. She had already been ordered Zofran for nausea as well as oral potassium. Dr. Salcedo will come see the patient and determine whether she needs to go to the [facility] today or tomorrow. Treatment Plan: [] Disposition: Admit Impression: Acute coronary syndrome This note was generated with [employer] dictation software. It may contain incorrect words, spelling, and punctuation that were not noted in review of the chart prior to signing ED Disposition - Plan for ED Patient: Chief Complaint: Chest Pain Referrals: [facility] Doctor,Out of [NON-STAFF] - What to do if you have Problems For any increased pain, shortness of breath, bleeding, nausea or vomiting, chest pain, or any unexpected problems, contact your Primary Care Provider. Call [facility] ([phone]) or report to the closest Emergency Room. Call 911 if necessary. 02/27/18 5789 <Electronically signed by Kate Bateman MD> Date Kate Bateman MD Cosigner Signature (If Indicated): Date CC: No Primary Care Physician ECHOCARDIOGRAM COMPLETE Observed: 02/27/2018 Status: F Source: [place] 12:15 PM [facility] Cardiovascular Services [address] [place] [address] Echo Complete 02/27/18 08 MR#: [id number] Acct: [id number] Name: RADHAMES RUBIN Rep #: [id number] : 1960 58 From: Lukas Salcedo MD Attending Dr: Bri Lee MD Status: ADM IN Ordering Dr: Lukas Salcedo MD Date: 02/26/18 Location: [facility] Sex: F C Admitted: 02/26/18 Reason For Study: Chest Pain Procedure This was a 2D Doppler, Color Flow transthoracic echocardiogram. The exam was of adequate technical quality. Exam performed portable in patient room. Left Ventricle Normal LV size. Left ventricular systolic function is normal. The estimated ejection fraction is 60 %. Transmitral doppler flow suggestive of impaired relaxation of left ventricle. No regional wall motion abnormalities noted. Right Ventricle Normal RV size. Normal systolic function. Atria The left atrium is mildly enlarged. Normal right atrium. No doppler evidence for ASD. Mitral Valve There is no mitral annular calcification. Normal mitral valve. Trivial mitral valve insufficiency. Tricuspid Valve Normal tricuspid valve. Mild tricuspid valve insufficiency. Right ventricular systolic pressure estimated to be 30 mmHg. Aortic Valve Trisinus/trileaflet aortic valve. Mild diffuse aortic valve thickening. Pulmonic Valve The pulmonic valve is not well visualized. Trivial pulmonic valve insufficiency. Great Vessels Normal sized aortic root. Pericardium/Pleural No pericardial effusion. MMode/2D Measurements AND Calculations LVIDd: 4.1 cm IVSd: 1.2 cm Ao root diam: 2.9 cm LVIDs: 2.7 cm LVPWd: 1.1 cm RVDd: 3.6 cm FS: 34.8 % LAV(MOD-bp): 49.2 ml LVAd ap4: 21.2 cm2 SV(MOD-sp4): 32.1 ml LAV(MOD-bp) Indexed: 26.9 ml/m2 EDV(MOD-sp4): 52.0 ml LAV(MOD-sp2): 38.4 ml EDV(sp4-el): 52.5 ml LAV(MOD-sp4): 61.9 ml LVAs ap4: 12.0 cm2 ESV(MOD-sp4): 19.9 ml ESV(sp4-el): 19.6 ml EF(MOD-sp4): 61.7 % EF(sp4-el): 62.7 % SV(sp4-el): 32.9 ml LA A4 area: 19.5 cm2 LA dimension(2D): 3.3 cm RA A4 area: 9.5 cm2 Doppler Measurements AND Calculations MV E max marty: 94.7 cm/sec Lat Peak E' Marty: 9.0 cm/sec Med Peak E' Marty: 7.2 cm/sec MV A max marty: 114.4 cm/sec E/E' lat: 10.6 E/E' med: 13.1 MV E/A: 0.83 Ao V2 max: 144.3 cm/sec LV V1 max: 109.8 cm/sec PA V2 max: 77.6 cm/sec Ao max P.3 mmHg LV V1 max P.8 mmHg Ao V2 mean: 97.7 cm/sec Ao mean P.2 mmHg Ao V2 VTI: 30.5 cm TR max marty: 260.5 cm/sec TR max P.1 mmHg Interpretation Summary Left ventricular systolic function is normal. The estimated ejection fraction is 60 %. The left atrium is mildly enlarged. Trivial mitral valve insufficiency. Mild tricuspid valve insufficiency. Mild diffuse aortic valve thickening. Trivial pulmonic valve insufficiency. Right ventricular systolic pressure estimated to be 30 mmHg. Ordering Physician: Lukas Salcedo Performed By: Sophie Burch, MIGUEL ÁNGEL, RVT 02/27/18 1214 Date Lukas Salcedo MD CC: No Primary Care Physician; Bri Lee MD; Lukas Salcedo MD Date Dictated: 02/27/18821 Date Transcribed: 02/27/181213 Staff Rn: Signed DISCHARGE INSTRUCTION Observed: 02/27/2018 Status: F Source: [place] 9:30 [facility] REPOSIT[facility] Medical Records Department [address] [place] [address] Instructions for Home/Discharge Instructions 02/27/18 0929 MR#: [id number] Acct: [id number] Name: RADHAMES RUBIN Rep #: [id number] : 1960 58 From: Bri Lee MD PCP: Care Physician, No Primary Status: ADM IN - Discharge Diagnoses Current Active Problems: Current Active and Chronic Problems Unstable angina (Acute) HTN (hypertension) (Chronic) Abnormal electrocardiogram (Acute) Reason(s) for Visit for Discharge Instructions: Chest pain You will use the following diet at home:: Cardiac Your food should be the consistency of: Regular Your liquids should be the consistency of: Regular/Thin Discharge Activity: Return to Normal Activity Allergies/Adverse Reactions: Allergies No Known Allergies Allergy (Verified 02/26/18 15:03) Medications to take at Discharge Aspirin [Aspirin, Baby] 81 mg PO DAILY@0800 02/26/18 Lisinopril/Hydrochlorothiazide [Lisinopril-Hctz 20-25 mg Tab] 1 each PO DAILY 02/26/18 Atorvastatin Calcium [Lipitor] 40 mg PO QHS #30 tablet 02/27/18 The following prescriptions were given: Atorvastatin Calcium [Lipitor] 40 mg PO QHS #30 tablet Primary Care Physician: [facility] Doctor,Out of [NON-STAFF] - Please follow up with your Primary Care Physician in: within 1-2 weeks of discharge Test Results: Test results from this visit will be discussed in further detail at your follow-up appointment, if applicable. Proposed Discharge Date: 02/27/18 02/27/18929 <Electronically signed by Bri Lee MD> Date Bri Lee MD CC: No Primary Care Physician; Lukas Salcedo MD Signed CBC-COMPLETE BLOOD CNT Collected: 02/27/2018 Status: F Source: [place] NO DIFF 6:00 AM [facility] TYPE CODE TESTS RESULT OUT OF RANGE REFERENCE UNITS LAB L100.1000 4.4-11.0 K/mm3 Normal WBC 9.1 LAB L100.1200 4.2-5.4 M/mm3 Low RBC 4.17 LAB L100.1300 12.0-15.0 g/dl Normal HGB 12.0 LAB L100.1400 37-47 % Low HCT 36.5 LAB L100.1500 81-99 fL Normal MCV 87.5 LAB L100.1600 27.0-32.0 pg Normal MCH 28.8 LAB L100.1700 32-36 g/gl Normal MCHC 32.9 LAB L100.1810 11.6-14.6 % Normal RDW CV 12.9 LAB L100.1820 35.1-43.9 fl Normal RDW SD 39.9 LAB L100.1900 150-450 K/mm3 Normal PLT 242 LAB L100.2000 6.2-12.0 fl Normal MPV 10.5 Performed By: #### L100.0500 #### [facility] [address] [place], [address] COMPREHENSIVE METABOLIC Collected: 02/27/2018 Status: F Source: [place] [facility] 6:00 AM [facility] TYPE CODE TESTS RESULT OUT OF RANGE REFERENCE UNITS LAB L501.0100 74-106 mg/dL Normal GLU 103 Result Comment: Fasting Glucose result from 100 to 125 mg/dL suggests IMPAIRED HOMEOSTASIS per A.D.A. criteria. Please note revised GLUCOSE reference range effective 2017. LAB L501.1000 7-18 mg/dL Normal BUN 11 LAB L501.1100 0.55-1.02 mg/dL Normal CREAT,SERUM 0.76 Result Comment: The validity of the calculated GFR AND GFRAA in patients over 70 years has not been determined. Clinical correlation is essential. LAB L501.1110 >60 mL/min Normal EST GFR 84 Result Comment: Non- GFR Calc LAB L501.1115 >60 mL/min Normal EST GFR - AA 101 Result Comment: GFR Calc LAB L501.1255 ml/min Normal Estimated CRCL 66.74 LAB L501.1300 10-20 RATIO Normal BUN/CRE 14.6 LAB L501.1500 6.4-8. g/dL Normal 2 T PROT 6.6 LAB L501.1800 3.2-5. g/dL Normal 0 ALB 3.2 LAB L501.1950 2.2-4. g/dL Normal 2 GLOB 3.4 LAB L501.2000 0.9-2. RATIO Normal 4 A/G 0.9 LAB L501.2200 8.5-10 mg/dL Normal .1 CA 8.6 LAB L501.4100 15-37 U/L Normal AST 16 LAB L501.4305 45-117 U/L Normal ALK P 49 LAB L501.4405 13-56 U/L Normal ALT 20 LAB L501.4600 0.20-1 mg/dL Normal .00 T BILI 0.60 LAB L501.5300 136-14 mmol/L Normal 5 NA 145 LAB L501.5600 3.5-5. mmol/L Normal 1 K 3.8 LAB L501.5900 98-107 mmol/L High CL 114 LAB L501.6100 21.0-3 mmol/L Normal 2.0 CO2 23.0 LAB L501.6200 5-15 Normal GAP 8 Performed By: #### L500.4050, L500.4100 #### [facility] [address] [place], [address] LIPID PROFILE Collected: 02/27/2018 Status: F Source: [place] 6:00 AM [facility] TYPE CODE TESTS RESULT OUT OF RANGE REFERENCE UNITS LAB L501.4900 200 mg/dL Normal CHOL 177 Result Comment: <200 mg/dL Desirable 200-240 mg/dL Borderline >240 mg/dL High Risk LAB L501.5000 mg/dL Normal TRIG 96 Result Comment: The drugs N-Acetylcysteine and Metamizole may falsely depress this assay. Serum Triglycerides Reference Interval Normal <150 mg/dL Borderline high 150 - 199 mg/dL High 200 - 499 mg/dL Very High > or = 500 mg/dL LAB L501.6400 mg/dL Normal HDL 50 Result Comment: The drugs N-Acetylcysteine and Metamizole may falsely depress this assay. Reference Range HDL <40 mg/dL Low HDL Cholesterol HDL >or= 60 mg/dL High HDL Cholesterol LAB L501.6500 0-130 mg/dL Normal LDL 108 LAB L501.6600 5-40 mg/dL Normal VLDL 19 Performed By: #### L500.4050, L500.4100 #### [facility] [address] [place], [address] GALLBLADDER Observed: 02/27/2018 Status: F Source: [place] 12:01 AM [facility] Imaging Services [address] [place] [address] Gallbladder MR#: [id number] Acct: [id number] Name: RADHAMES RUBIN Rep #: [id number] : 1960 F 58 From: Bryan Aguillon MD PCP: Care Physician, No Primary Status: ADM IN Study: Gallbladder Date of Exam: 02/27/18 Exam# [id number] Ordering Dr: Lukas Salcedo MD STUDY: ABDOMINAL ULTRASOUND - RIGHT UPPER QUADRANT REASON FOR VISIT: Female, 58 years old. Abdominal/chest pain. Nausea x 2 days. TECHNIQUE: Ultrasound evaluation of the right upper quadrant was performed with real-time and static turner-scale imaging. TECHNICAL QUALITY: Adequate. COMPARISON: None. FINDINGS: Liver: The liver measures 18.5 cm. There is normal echogenicity of the liver. The bile ducts are within normal limits. There is hepatic color flow. The direction of portal flow is hepatopetal. There is no demonstrated mass lesion. Gallbladder: Normal distended gallbladder. The gallbladder wall measures 2.8 mm. There is a negative sonographic Ulloa's sign. There is no pericholecystic fluid. There is a 2 x 3 mm nonshadowing rounded soft tissue echogenicity along the inferior wall near the gallbladder fundus that may be a small polyp. Common Bile Duct (C.B.D.): The common bile duct measures 4.8 mm. Pancreas: Normal size of the head, body and tail of the pancreas. There is normal echogenicity of the pancreas. There is no demonstrated pancreatic mass or cyst. Right Kidney: Normal size of the right kidney. The right kidney measures 11.8 x 5.2 x 4.5 cm. Normal renal cortex. The right cortex measures 1.5 cm. There is no demonstrated renal mass or cyst. There is no right hydronephrosis. US/Gallbladder IMPRESSION: 2-3 mm polyp in gallbladder, otherwise normal right upper quadrant ultrasound examination. Electronically Signed: Itz Aguillon MD at 13:27 EST , Service support , CC: No Primary Care Physician; Lukas Salcedo MD Staff Rn: Signed TROPONIN-I Collected: 02/26/2018 Status: F Source: [place] 8:18 PM [facility] Order Comment: 'TROP' Serial specimen #1, #2 or #3: 2 PATIENT NOT IN ROOM. JAZZY SOTELO WILL CALL WHEN PATIENT RETURNS. TYPE CODE TESTS RESULT OUT OF RANGE REFERENCE UNITS LAB L501.4010 <0.045 ng/mL Normal < 0.015 TROPONIN-I Result Comment: TROPONIN-I EXPECTED VALUES <0.045 Negative 0.045 - 0.590 Consistent with Cardiac Damage > OR = 0.600 Critical Value Not every elevated troponin is indicative of VA. These values should be used with clinical judgement in examining the patient's clinical picture for diagnosis. To establish a diagnosis of VA versus myocardial injury, there must be a demonstrated rise and/or fall in the troponin values, in addition to ischemic symptoms, EKG changes, new regional wall motion abnormality, and/or angiographical evidence. PLEASE NOTE: REFERENCE RANGES EDITED 17 Performed By: #### L501.4010 #### [facility] [address] [place], [place], [address] LIVER PROFILE Collected: 02/26/2018 Status: F Source: [place] 8:18 PM [facility] Order Comment: Comments: add to admit labs Comments: add to admit labs TYPE CODE TESTS RESULT OUT OF RANGE REFERENCE UNITS LAB L501.1500 6.4-8.2 g/dL Normal T PROT 6.6 LAB L501.1800 3.2-5.0 g/dL Normal ALB 3.3 LAB L501.1950 2.2-4.2 g/dL Normal GLOB 3.3 LAB L501.4100 15-37 U/L Normal AST 23 LAB L501.4305 45-117 U/L Normal ALK P 48 LAB L501.4405 13-56 U/L Normal ALT 20 LAB L501.4600 0.20-1.00 mg/dL Normal T BILI 0.40 LAB L501.4700 0.00-0.30 mg/dL Normal D BILI 0.06 Performed By: #### L500.3400, L501.2400, L501.2450 #### [facility] [address] [place], [address] AMYLASE Collected: 02/26/2018 Status: F Source: [place] 8:18 PM [facility] Order Comment: Comments: add to admit labs Comments: add to admit labs TYPE CODE TESTS RESULT OUT OF RANGE REFERENCE UNITS LAB L501.2400 25-115 U/L Normal SKYLER 34 Performed By: #### L500.3400, L501.2400, L501.2450 #### [facility] [address] [place], [address] LIPASE Collected: 02/26/2018 Status: F Source: [place] 8:18 PM [facility] Order Comment: Comments: add to admit labs Comments: add to admit labs TYPE CODE TESTS RESULT OUT OF RANGE REFERENCE UNITS LAB L501.2450 73-393 U/L Normal LIPASE 99 Performed By: #### L500.3400, L501.2400, L501.2450 #### [facility] [address] [place], [address] CONSULTATION Observed: 02/26/2018 Status: F Source: [place] 6:38 PM [facility] Medical Records Department [address] [place] [address] Consultation 02/26/18 1655 MR#: [id number] Acct: [id number] Name: RADHAMES RUBIN Rep #: [id number] : 1960 58 From: Lukas Salcedo MD PCP: Care Physician, No Primary Status: ADM IN Location: [place] [address] Problem List (1) Unstable angina Status: Acute (2) Abnormal electrocardiogram Status: Acute (3) HTN (hypertension) Status: Chronic Qualifiers: Hypertension type: essential hypertension Qualified Code(s): I10 - Essential (primary) hypertension Reason for Consult Date of Consultation: 02/26/18 History of Present Illness: The patient is a 58 year old white female originally from [place] visiting the local area on business who presents for evaluation of ongoing chest discomfort concerning for unstable angina pectoris. The patient states she has a history of hypertension. Otherwise to the best of her knowledge she has no known cardiovascular history. She does not believe she has undergone cardiovascular evaluation in the past. She states she has been active and a runner without any obvious difficulties up until last week. 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 She states she felt as if someone was sitting on her chest or there was a lot of pressure on her chest. She had associated shortness of breath, nausea, and dizziness. She states she could not get comfortable. She went back to her hotel room and subsequently summoned the EMS system. She was then evaluated by the EMS system and not to the [facility] emergency department for further evaluation. She was evaluated by the emergency department staff. She was found to have ongoing symptoms and waxing and waning ST segment depression in anterior lateral precordial leads. She was treated with aspirin and nitroglycerin sublingual with partial relief but not total relief. She was then placed on additional medical therapy with IV nitroglycerin which has been requiring increasing dosages. She continued to have ongoing symptoms. She denies any history of orthopnea or PND or peripheral pitting edema. There has been no near syncope or syncope. She has had no radiation to her back. She has undergone evaluation with a d-dimer. It was negative. Her chest x-ray was performed. There appeared to be on preliminary evaluation no acute cardiopulmonary disease process. [] Past Medical History Allergies/Adverse Reactions: Allergies No Known Allergies Allergy (Verified 02/26/18 15:03) Home Medications: Ambulatory Orders Medication Instructions Recorded Aspirin [Aspirin, Baby] 81 mg PO DAILY@0800 02/26/18 Lisinopril/Hydrochlorothiazide 1 each PO DAILY 02/26/18 [Lisinopril-Hctz 20-25 mg Tab] Past Medical History (Chronic Problems): Chronic Problems HTN (hypertension) (Chronic) - *Family History Maternal History Items: - - Liver cancer. Paternal History Items: Heart Disease Smoking Status: Never smoker Alcohol: None Drugs: None Review of Systems - Review of Systems General: Denies: Fever, Night Sweats, Fatigue Cardiovascular: Reports: Dizziness. Denies: Chest Discomfort, Shortness of Breath, Orthopnea, PND, Peripheral Edema, Palpitations, Lightheadedness, Near Syncope, Syncope Gastrointestinal: Reports: Nausea. Denies: Hematemesis, Hematochezia, Melena Genitourinary: Denies: Dysuria, Hematuria Skin: Denies: Rash Subjectve: This is a 58-year-old white female who appears to be uncomfortable and continuing with chest discomfort despite ongoing medical therapy. Objective: Vital Signs Temp Pulse Resp BP Pulse Ox 97.9 F 91 22 H 160/95 H 99 02/26/18 14:56 02/26/18 16:27 02/26/18 16:27 02/26/18 16:27 02/26/18 16:27 Oxygen Flow Rate (L/min) 3 Oxygen Delivery Method Room Air Weight: 176 lb 2.389 oz Body Mass Index (BMI) 31.1 General: Awake, Alert, Oriented x 3, Cooperative, No Acute Distress HEENT: Atraumatic, Normocephalic, PERRL, EOMI, Sclera Non Icteric Oral: Moist Mucosa Neck: Supple, Good ROM, No JVD Lungs: Clear to auscultation Cardiovascular: Regular Rhythm, Normal S1, Normal S2 Vascular: No Carotid Bruits Abdomen: Bowel Sounds Present, Soft, Non Tender Extremities: No Cyanosis, No Clubbing, No edema Neurological: No Focal Motor or Sensory Deficit Psych/Mental Status: Appropriate 02/26/18 15:05: WBC 6.9, RBC 4.66, Hgb 13.4, Hct 39.7, MCV 85.2, MCH 28.8, MCHC 33.8, RDW 12.5, RDW Differential 38.1, Plt Count 259, MPV 10.2, Immature Gran % (Auto) 0.300, Neut % (Auto) 68.6, Lymph % (Auto) 23.0, Bennett % (Auto) 4.8, Eos % (Auto) 2.9, Baso % (Auto) 0.4, Absolute Neuts (auto) 4.7, Total Counted Not Reportable 02/26/18 15:05: D-Dimer Quant (PE/DVT) 0.29 02/26/18 15:05: Sodium 139, Potassium 3.3 L, Chloride 105, Carbon Dioxide 21.0, Anion Gap 13, BUN 13, Creatinine 0.93, Est GFR (MDRD) Af Amer 80, Est GFR (MDRD) Non-Af 66, BUN/Creatinine Ratio 14.0, Glucose 143 H, Calcium 8.9, Troponin I < 0.015 Rhythm: Sinus rhythm EKG: Sinus rhythm; ST segment abnormality (V4-V6) CXR: As noted above Assessment/Plan 1. Unstable angina pectoris The patient presents with a history compatible with unstable angina pectoris. She has cardiovascular risk factors which include hypertension. She also presented with waxing and waning ST segment depression changes. This raises concerns of underlying cardiovascular disease process. She has been evaluated for the possibility of thromboembolic events based upon her recent travels. Her d-dimer was negative. Thus far there is no evidence of underlying great vessel disease. At the present time despite ongoing medical therapy with aspirin, IV nitroglycerin, beta-blockers, and the initiation of oral antiplatelets with Brilinta, she continues with chest discomfort requiring increasing IV nitroglycerin dosage. Thus at the present time is felt the patient should be considered for further diagnostic cardiac catheterization. The procedure and risks were discussed with her. She was agreeable to this approach. 2. Abnormal echocardiogram The patient does have an abnormal echo cardiogram based upon her ST segment depression. This is waxed and waned in correlation with her symptoms. This does raise concern of unstable angina pectoris. Thus she will undergo continue medical therapy and further evaluation care as noted above. 3. Hypertension The patient has a long-standing history of hypertension. She has been on medical management with lisinopril. She will continue to be followed with medications being adjusted as deemed appropriate. Comment: The above was discussed with the patient, Dr. Bateman of the [facility] emergency department staff, and Dr. Villanueva of the [facility] staff. Dragon disclaimer 02/26/18 1838 <Electronically signed by Lukas Salcedo MD> Date Lukas Salcedo MD Cosigner Signature (if applicable): Date CC: No Primary Care Physician Signed CHEST WITH CONTRAST Observed: 02/26/2018 Status: F Source: [place] 6:32 PM [facility] Imaging Services [address] [place], [place] [address] [address] Chest WITH Contrast MR#: [id number] Acct: [id number] Name: RADHAMES RUBIN Rep #: [id number] : 1960 F 58 From: Blane Almonte MD PCP: Care Physician, No Primary Status: ADM IN Study: Chest WITH Contrast Date of Exam: 02/26/18 Exam# [id number] Ordering Dr: Lukas Salcedo MD STUDY: CTA CHEST REASON FOR EXAM: Female, 58 years old. Angina. RADIATION DOSAGE (If Supplied By Facility): CTDIvol = ( 10.28 ) mGy, DLP = ( 358.68 ) mGycm TECHNIQUE: The examination was performed with the intravenous administration of 100 ml of Isovue 370 contrast material. Post-processing of the angiographic images was performed, with multiplanar reformation and 3D reconstruction. Individualized dose optimization techniques were used for this CT. COMPARISON: None. FINDINGS: Normal enhancement of the main pulmonary artery and right and left pulmonary arteries. Normal enhancement of the bilateral peripheral pulmonary arteries. There is no demonstrated pulmonary embolism. Normal thoracic aorta and visualized great vessels. There is no demonstrated aortic dissection. Normal heart and pericardium. Normal mediastinum. Normal hilar regions. Normal visualized trachea and bronchi. The lungs are well expanded. Normal pulmonary parenchyma. Normal pleura. Normal chest wall structures. Normal osseous structures. Normal visualized upper abdomen. CT/Chest WITH Contrast IMPRESSION: Normal CTA chest examination, without a demonstrated pulmonary embolism or arterial dissection. Electronically Signed: Blane Almonte, at 20:07 EST Tel , Service support , CC: No Primary Care Physician; Lukas Salcedo MD Staff Rn: Signed HISTORY AND PHYSICAL Observed: 02/26/2018 Status: F Source: [place] EXAM 6:02 PM [facility] Medical Records Department [address] [place] [address] History and Physical 02/26/18 2275 MR#: [id number] Acct: [id number] Name: RADHAMES RUBIN Rep #: [id number] : 1960 58 From: Saima Villanueva MD PCP: Care Physician, No Primary Status: REG CLI Y Location: [facility] Problem List (1) Unstable angina Status: Acute (2) HTN (hypertension) Status: Chronic Qualifiers: Hypertension type: essential hypertension Qualified Code(s): I10 - Essential (primary) hypertension (3) Abnormal electrocardiogram Status: Acute History of Present Illness Date of Admission: 02/26/18 Chief Complaint: Chest pain. The patient is a 58 year old F with past medical history as mentioned above presented to the ED because of chest pain. Her symptoms started around noon today when she was at work sitting at her desk, started feeling dizzy, lightheaded and nauseated. She thought that she did not eat and that is why she is nauseated. She did not feel well after that and she decided to go back to the local hotel where she is staying. 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 In the emergency department, her vital signs were stable. Her routine blood work was remarkable for potassium of 3.3, otherwise normal. When the patient arrived to the ER, she had chest pain and at the same time, EKG done and revealed T wave inversion in lead V4. After her pain subsided, repeat EKG done and does T wave inversion in leads V4 disappeared. Her troponin was negative. Chest x-ray showed no acute findings. Patient was evaluated by cardiology, Dr. Salcedo, decision was made to take patient for emergent cardiac catheterization. She is being admitted for unstable angina for evaluation and treatment. Past Medical History Past Medical History (Chronic Problems): Chronic Problems HTN (hypertension) (Chronic) Allergies No Known Allergies Allergy (Verified 02/26/18 15:03) Home Medications: Ambulatory Orders Medication Instructions Recorded Aspirin [Aspirin, Baby] 81 mg PO DAILY@0800 02/26/18 Lisinopril/Hydrochlorothiazide 1 each PO DAILY 02/26/18 [Lisinopril-Hctz 20-25 mg Tab] Surgical History: hysterectomy, - - section x2. Psychiatric History: No pertinent psych hx DIRECTOR OF MUSIC History: No pertinent DIRECTOR OF MUSIC history Lives: Spouse/ Significant Other Smoking Status: Never smoker Alcohol: None Drugs: None - *Family History Maternal History Items: - - Liver cancer. Paternal History Items: Heart Disease Review of Systems Constitutional: Denies: Anorexia, Chills, Fever, Weakness Eyes: Denies: Blurred vision, Double vision, Drainage, Redness HEENT: Denies: Difficulty Hearing, Ear Pain, Eye Pain, Nasal Congestion, Sore Throat Cardiovascular: Reports: Chest Pain, Light Headedness. Denies: Chest Tightness, Edema, Heaviness, Orthopnea, Paroxysmal Noc. Dyspnea, Syncope Respiratory: Reports: Shortness of breath at rest. Denies: Cough, Hemoptysis, Sputum production, Wheezing Gastrointestinal: Reports: Nausea. Denies: Abdominal Pain, Constipation, Diarrhea, Vomiting Genitourinary: Denies: Dysuria, Frequency, Hematuria Musculoskeletal: Denies: Arm Pain, Back Pain, Foot Pain Skin: Denies: Dryness, Rash Neurological: Denies: Balance problems, Double vision, Change in Speech, Slurred speech, Confusion, Focal weakness, Headaches, Incoordination Psychiatric: Denies: Anxiety, Depression Endocrine: Denies: Change in Body Habitus, Polydipsia VTE Information - Inpt Only VTE Present on Admission: No VTE Mechan Device Prophylaxis: None VTE Pharm Prophylaxis ordered?: No Patient Problems: Active and Suspected Problems Unstable angina (Acute) Abnormal electrocardiogram (Acute) - Physical Exam General: Alert, Oriented x3, Cooperative, No apparent distress HEENT: Atraumatic, PERRLA, EOMI, Normocephalic Oral: Moist Mucosa, No Gingival or Mucosal Lesions/ Ulcerations Neck: Supple, No JVD, Negative Carotid Bruits, Trachea Midline, Thyroid Normal Size and Texture Lungs: Clear to auscultation, Normal air movement, No rhonchi, No wheeze, No rales Cardiovascular: Regular rate, Regular Rhythm, Normal S1, Normal S2, PMI Normal Abdomen: Bowel Sounds Present, Soft, Non Tender, Non-Distended, No Hepato-splenomegaly Extremities: No clubbing, No cyanosis, No edema Skin: No rashes, No breakdown Lymphatic: No Cervical, Supraclavicular, or Inguinal Adenopathy Neurological: Cranial nerves II-XII grossly intact, Motor Exam 5/5 strength throughout Psych/Mental Status: Normal Affect, Appropriate, Alert and oriented to time, place, person, mood and affect Vital Signs Temp Pulse Resp BP Pulse Ox 97.9 F 91 20 H 147/89 H 98 02/26/18 14:56 02/26/18 16:52 02/26/18 16:52 02/26/18 16:52 02/26/18 16:52 Oxygen Flow Rate (L/min) 3 Oxygen Delivery Method Room Air Weight: 176 lb 2.389 oz Body Mass Index (BMI) 31.1 Laboratory Tests Past 24 Hrs Clinical Impression(s) from Imaging Studies Chest X-Ray 02/26/18 15:13 IMPRESSION: Normal x-ray examination of the chest. Electronically Signed: Monty Quiros MD at 15:34 EST Tel [phone], Service support , Assessment/Plan All Active Problems Unstable angina (Acute) Abnormal electrocardiogram (Acute) This is a 58 years old female patient presented to the emergency room because of chest pain, found to have EKG changes that resolved and she is being admitted for unstable angina for evaluation and treatment. #1 unstable angina/abnormal EKG: EKG reviewed as above, first troponin is negative. Chest x-ray showed no acute findings. Cardiology consulted and evaluated the patient in the ED and decision made to take patient for emergent cardiac catheterization. Plan: Admit to PCU, cardiac monitoring, serial cardiac enzymes, repeat EKG tomorrow morning, IV fluids, IV morphine as needed for pain, Zofran as needed, continue aspirin, start Lipitor, fasting lipid profile, continue lisinopril and HCTZ, cardiology consult as above, repeat CBC and BMP tomorrow morning. #2 hypokalemia: Likely because of HCTZ, replace potassium with IV potassium chloride, repeat BMP tomorrow morning. #3 hypertension: Blood pressure stable, continue lisinopril and HCTZ. #4 DVT prophylaxis: SCDs. This note was generated with [employer] software. It may contain incorrect words, spelling, and punctuation that were not noted in checking the note before signing. Code Visit Inpatient E AND M: 65019 Init Hosp L3 02/26/18 1802 <Electronically signed by Saima Villanueva MD> Date Saima Villanueva MD Cosigner Signature: Date (if applicable) CC: No Primary Care Physician; Saima Villanueva Signed CHEST 1 VIEW Observed: 02/26/2018 Status: F Source: [place] (PORTABLE) 3:12 PM [facility] Imaging Services [address] [facility] [place] [address] Chest 1 View (Portable) MR#: [id number] Acct: [id number] Name: RADHAMES RUBIN Rep #: [id number] : 1960 F 58 From: Monty Quiros MD PCP: Care Physician, No Primary Status: REG ER Study: Chest 1 View (Portable) Date of Exam: 02/26/18 Exam# [id number] Ordering Dr: Kate Bateman MD STUDY: X-RAY CHEST REASON FOR EXAM: Female, 58 years old. Chest pain. TECHNIQUE: Single AP portable view of the chest. COMPARISON: None. FINDINGS: EKG electrodes are seen. The lungs are clear and expanded. Scattered calcified granulomas. There is no demonstrated pleural abnormality. Normal size heart. Normal mediastinum and yen. Normal visualized pulmonary arteries. There is atherosclerotic tortuosity of the aortic arch and descending thoracic aorta. There are degenerative changes of the visualized thoracic spine. Normal visualized ribs, clavicles, and shoulders. There is no demonstrated abnormality of the visualized soft tissue structures of the upper abdomen. RAD/Chest 1 View (Portable) IMPRESSION: Normal x-ray examination of the chest. Electronically Signed: Monty Quiros MD at 15:34 EST Tel [phone], Service support , CC: No Primary Care Physician; Kate Bateman MD Staff Rn: Signed CBC W/DIFF, AUTOMATED Collected: 02/26/2018 Status: F Source: [place] 3:05 PM [facility] TYPE CODE TESTS RESULT OUT OF RANGE REFERENCE UNITS LAB L100.1000 4.4-11.0 K/mm3 Normal WBC 6.9 LAB L100.1200 4.2-5.4 M/mm3 Normal RBC 4.66 LAB L100.1300 12.0-15.0 g/dl Normal HGB 13.4 LAB L100.1400 37-47 % Normal HCT 39.7 LAB L100.1500 81-99 fL Normal MCV 85.2 LAB L100.1600 27.0-32.0 pg Normal MCH 28.8 LAB L100.1700 32-36 g/gl Normal MCHC 33.8 LAB L100.1810 11.6-14.6 % Normal RDW CV 12.5 LAB L100.1820 35.1-43.9 fl Normal RDW SD 38.1 LAB L100.1900 150-450 K/mm3 Normal PLT 259 LAB L100.2000 6.2-12.0 fl Normal MPV 10.2 LAB L100.2100 47-70 % Normal NEUT% 68.6 LAB L100.2200 19-41 % Normal LY% 23.0 LAB L100.2300 0-10 % Normal MONO% 4.8 LAB L100.2400 0-5 % Normal EO% 2.9 LAB L100.2500 0-1 % Normal BASO% 0.4 LAB L100.2550 0.0-0.9 % Normal IM GRAN % 0.300 Result Comment: IG% - Immature Granulocytes (promyelocytes, myelocytes and metamyelocytes) > 1% indicates that a LEFT SHIFT is Present. LAB L100.2620 2.0-7.7 X10 3/uL Normal Absolute Neut 4.7 LAB L100.2720 0.83-4.51 X10 3/ul Normal Absolute Lymph 1.59 Performed By: #### L100.0100 #### [facility] [address] [place], [address] BASIC METABOLIC Collected: 02/26/2018 Status: F Source: [place] PROFILE (BMP) 3:05 PM [facility] TYPE CODE TESTS RESULT OUT OF RANGE REFERENCE UNITS LAB L501.0100 74-106 mg/dL High GLU 143 Result Comment: Fasting Glucose result greater than or equal to 126 mg/dL suggests DIABETES MELLITUS per A.D.A. criteria. Please note revised GLUCOSE reference range effective 2017. LAB L501.1000 7-18 mg/dL Normal BUN 13 LAB L501.1100 0.55-1.02 mg/dL Normal CREAT,SERUM 0.93 Result Comment: The validity of the calculated GFR AND GFRAA in patients over 70 years has not been determined. Clinical correlation is essential. LAB L501.1110 >60 mL/min Normal EST GFR 66 Result Comment: Non- GFR Calc LAB L501.1115 >60 mL/min Normal EST GFR - AA 80 Result Comment: GFR Calc LAB L501.1255 ml/min Normal Estimated CRCL 54.54 LAB L501.1300 10-20 RATIO Normal BUN/CRE 14.0 LAB L501.2200 8.5-10 mg/dL Normal .1 CA 8.9 LAB L501.5300 136-14 mmol/L Normal 5 NA 139 LAB L501.5600 3.5-5. mmol/L Low 1 K 3.3 LAB L501.5900 98-107 mmol/L Normal CL 105 LAB L501.6100 21.0-3 mmol/L Normal 2.0 CO2 21.0 LAB L501.6200 5-15 Normal GAP 13 Performed By: #### L500.2500, L501.4010 #### [facility] [address] [facility] [address] [place], [place], [id number] TROPONIN-I Collected: 02/26/2018 Status: F Source: [place] 3:05 PM [facility] TYPE CODE TESTS RESULT OUT OF RANGE REFERENCE UNITS LAB L501.4010 <0.045 ng/mL Normal < 0.015 TROPONIN-I Result Comment: TROPONIN-I EXPECTED VALUES <0.045 Negative 0.045 - 0.590 Consistent with Cardiac Damage > OR = 0.600 Critical Value Not every elevated troponin is indicative of VA. These values should be used with clinical judgement in examining the patient's clinical picture for diagnosis. To establish a diagnosis of VA versus myocardial injury, there must be a demonstrated rise and/or fall in the troponin values, in addition to ischemic symptoms, EKG changes, new regional wall motion abnormality, and/or angiographical evidence. PLEASE NOTE: REFERENCE RANGES EDITED 17 Performed By: #### L500.2500, L501.4010 #### [facility] [address] [place], [address] D-DIMER QUANTITATIVE Collected: 02/26/2018 Status: F Source: [place] (DVT/PE) 3:05 PM [facility] TYPE CODE TESTS RESULT OUT OF RANGE REFERENCE UNITS LAB L300.8000 0.27-0.49 FEU/ug/m Normal D-DIMER 0.29 QUANT Result Comment: NORMAL D-Dimer level (<0.50) indicates no DVT or PE. Performed By: #### L300.8000 #### [facility] [address] [place], [place], [address] ALLERGIES ALLERGIES DATE TYPE / CODE NAME / CODE REACTION SEVERITY SOURCE 02/26/2018 Drug No Known Unknown [facility] Allergy/4160 Allergies/F00 Hospital 36879(SNOMED [id number](RXNOR Repository CT) M) ENCOUNTERS ENCOUNTERS ADMIT/DISCHARGE ACCOUNT ADMITTING ENCOUNTER LOCATION SOURCE NUMBER CLASS 02/26/2018/ [id number] [facility] Ambulatory [place] [facility]: Repository [id number]: 1 02/26/2018 [id number] [facility], Ambulatory BMSBuilding:B [place] [address] [place] Repository 02/26/2018 [id number] Ambulatory BMSBuilding:B [place] [address] [place] [place] PAYERS PAYERS ENCOUNTER GUARANTOR PAYER SUBSCRIBER SOURCE 02/26/2018 RADHAMES Murray RADHAMES Gar[place] [id number] Insurance:ANTHEMPolic AVANTDOB: [facility] [place] y Number: [id number] Hospital [id number]: (405) [id number] Repository [phone] () Date:4620-05-95[address], [place] [address]EZ: 02/26/2018 Secondary NOT GIVENUNK [place] Insurance:SELF PAY [facility] Number: Effective Repository Date:2018-02-26 02/26/2018 RADHAMES Cornejo Primary RADHAMES Cornejo [place] [id number] Insurance:ANTHEMPolic AVANTDOB: [place], [place] y Number: [id number] Hospital [id number]: (405) [id number] Repository [phone] () Date:[id number], [place] [address]ES: 02/26/2018 Secondary NOT GIVENUNK [place] Insurance:SELF PAY [facility] Number: Effective Repository Date:2018-02-26 02/26/2018 RADHAMES Cornejo Primary RADHAMES Eugene [id number] Insurance:ANTHEMPolic AVANTDOB: [facility] [place] y Number: [id number] Hospital [address]Afv: (405) [id number] Repository [phone] () Date:6423-31-53AE [address], [place] [address]BO: 02/26/2018 Secondary NOT GIVENUNK [place] Insurance:SELF PAY [facility] Number: Effective Repository Date:2018-02-26
--- OUTSIDE RECORDS SUMMARY | 2018-04-30 23:18 | XMS RPT_ITS ---
:1960 Author Organization OH[facility] Care Team Providers Name Role Phone Primay Care Physicia, No Primary Care Unavailable Ashelfah, Ghasem Admitting Unavailable Moodispaw, Lukas Consulting Unavailable Paintsil, Wac[place] Attending Unavailable Ashelfah, Ghasem Attending Unavailable Primay Care Physicia, No Primary Care Unavailable Pacheco Cary Consulting Unavailable Ashelfah, Ghasem Admitting Unavailable Paintsil, [place]ac[place] Attending Unavailable Primay Care Physicia, No Primary Care Unavailable Moodispaw, Lukas Consulting Unavailable Paintsil, [place]ac[place] Consulting Unavailable PROBLEMS PROBLEMS No Problem Records FoundPROCEDURES PROCEDURES No Procedure Records FoundRESULTS RESULTS DISCHARGE SUMMARY Observed: 02/27/2018 Status: F Source: [place] 2:55 PM [facility] REPOSITORY [facility] Medical Records Department [address] [place] [address] Discharge Summary 02/27/18 0930 MR#: [id number] Acct: [id number] Name: RADHAMES RUBIN Rep #: [id number] : 1960 58 From: Bri Lee MD PCP: Care Physician, No Primary Status: DIS ANNEMARIE Y Location: [place] [address] Discharge Date and Diagnosis Date of Admission: [...] applicable Code Visit OBSV E AND M: 48587 Observation care discharge 02/27/18 1454 <Electronically signed by Bri Lee MD> Date Bri Lee MD Cosigner Signature (if applicable): Date CC: No Primary Care Physician; Bri Lee MD Signed EMERGENCY DEPARTMENT Observed: 02/27/2018 Status: F Source: [place] SUMMARY 2:45 PM [facility] REPOSITORY [facility] Medical Records Department [address] [place] [address] Emergency Department Summary 02/26/18 1516 MR#: [id number] Acct: [id number] Name: RADHAMES RUBIN Rep #: [id number] : 1960 58 From: Kate Bateman MD PCP: Care Physician, No Primary Status: DIS ANNEMARIE - ER Visit Summary Date of Service: 02/26/18 Chief Complaint: Chest pain History of Present Illness: The patient is a 58 F currently staying at a local hotel and 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 She flew in to [place] on Sunday. Patient states she was at [...] whether she needs to go to the [facility] today or tomorrow. Treatment Plan: [] Disposition: Admit Impression: Acute coronary syndrome This note was generated with Wormhole dictation software. It may contain incorrect words, spelling, and punctuation that were not noted in review of the chart prior to signing ED Disposition - Plan for ED Patient: Chief Complaint: Chest Pain Referrals: [facility] Doctor,Out of [NON-STAFF] - What to do if you have Problems For any increased pain, shortness of breath, bleeding, nausea or vomiting, chest pain, or any unexpected problems, contact your Primary Care Provider. Call [facility] ([phone]) or report to the closest Emergency Room. Call 911 if necessary. 02/27/18 8322 <Electronically signed by Kate Bateman MD> Date Kate Bateman MD Cosigner Signature (If Indicated): Date CC: No Primary Care Physician ECHOCARDIOGRAM COMPLETE Observed: 02/27/2018 Status: F Source: [place] 12:15 PM [facility] REPOSITORY [facility] Cardiovascular Services [address] [place] [address] Echo Complete 02/27/18 08 MR#: [id number] Acct: [id number] Name: RADHAMES RUBIN Rep #: [id number] : 1960 58 From: Lukas Salcedo MD Attending Dr: Bri Lee MD Status: ADM IN Ordering Dr: Lukas Salcedo MD Date: 02/26/18 Location: [facility] Sex: F C Admitted: 02/26/18 Reason For [...] MD Date Dictated: 02/27/18821 Date Transcribed: 02/27/181213 Inventory Administrator: Signed DISCHARGE INSTRUCTION Observed: 02/27/2018 Status: F Source: [place] 9:30 [facility] REPOSITORY [facility] Medical Records Department [address] [place] [address] Instructions for Home/Discharge Instructions 02/27/18 0929 MR#: [id number] Acct: [id number] Name: RADHAMES RUBIN Rep #: [id number] : 1960 58 From: Bri Lee MD [...] PO QHS #30 tablet Primary Care Physician: [facility] Doctor,Out of [NON-STAFF] - Please follow up [...] F Source: [place] NO DIFF 6:00 AM [facility] REPOSITORY TYPE CODE TESTS RESULT OUT OF [...] MPV 10.5 Performed By: #### L100.0500 #### [facility] Laboratory [address] [place], [address] COMPREHENSIVE METABOLIC Collected: 02/27/2018 Status: F Source: [place] [facility] 6:00 AM [facility] REPOSITORY TYPE CODE TESTS RESULT OUT OF [...] 8 Performed By: #### L500.4050, L500.4100 #### [facility] Laboratory [address] [place], [address] LIPID PROFILE Collected: 02/27/2018 Status: F Source: [place] 6:00 AM [facility] REPOSITORY TYPE CODE TESTS RESULT OUT OF [...] 19 Performed By: #### L500.4050, L500.4100 #### [facility] Laboratory [address] [place], [address] GALLBLADDER Observed: 02/27/2018 Status: F Source: [place] 12:01 AM [facility] REPOSITORY [facility] Imaging Services [address] [place] [address] Gallbladder MR#: [id number] Acct: [id number] Name: RADHAMES RUBIN Rep #: [id number] : 1960 F 58 From: Bryan Aguillon MD PCP: Care Physician, No Primary Status: ADM IN Study: Gallbladder Date of Exam: 02/27/18 Exam# [id number] Ordering Dr: Lukas Salcedo MD STUDY: ABDOMINAL [...] No Primary Care Physician; Lukas Salcedo MD Inventory Administrator: Signed TROPONIN-I Collected: 02/26/2018 Status: F Source: [place] 8:18 PM [facility] REPOSITORY Order Comment: 'TROP' Serial specimen #1, [...] Not every elevated troponin is indicative of VT. These values should be used with clinical judgement in examining the patient's clinical picture for diagnosis. To establish a diagnosis of VT versus myocardial injury, there must be a demonstrated rise and/or fall in the troponin values, in addition to ischemic symptoms, EKG changes, new regional wall motion abnormality, and/or angiographical evidence. PLEASE NOTE: REFERENCE RANGES EDITED 17 Performed By: #### L501.4010 #### [facility] Laboratory [address] [facility] [place], [place], [address] LIVER PROFILE Collected: 02/26/2018 Status: F Source: [place] 8:18 PM [facility] REPOSITORY Order Comment: Comments: add to admit [...] Performed By: #### L500.3400, L501.2400, L501.2450 #### [facility] Laboratory [address] [place], [address] AMYLASE Collected: 02/26/2018 Status: F Source: [place] 8:18 PM [facility] REPOSITORY Order Comment: Comments: add to admit labs Comments: add to admit labs TYPE CODE TESTS RESULT OUT OF RANGE REFERENCE UNITS LAB L501.2400 25-115 U/L Normal SKYLER 34 Performed By: #### L500.3400, L501.2400, L501.2450 #### [facility] Laboratory [address] [place], [address] LIPASE Collected: 02/26/2018 Status: F Source: [place] 8:18 PM [facility] REPOSITORY Order Comment: Comments: add to admit labs Comments: add to admit labs TYPE CODE TESTS RESULT OUT OF RANGE REFERENCE UNITS LAB L501.2450 73-393 U/L Normal LIPASE 99 Performed By: #### L500.3400, L501.2400, L501.2450 #### [facility] Laboratory [address] [place], [address] CONSULTATION Observed: 02/26/2018 Status: F Source: [place] 6:38 PM [facility] REPOSITORY [facility] Medical Records Department [address] [place] [address] Consultation 02/26/18 1655 MR#: [id number] Acct: [id number] Name: RADHAMES RUBIN Rep #: [id number] : 1960 58 From: Lukas Salcedo MD PCP: Care Physician, No Primary Status: ADM IN Location: [place] [address] Problem List (1) Unstable angina Status: Acute (2) Abnormal electrocardiogram Status: Acute (3) HTN (hypertension) Status: Chronic Qualifiers: Hypertension type: essential hypertension Qualified Code(s): I10 - Essential (primary) hypertension Reason for Consult Date of Consultation: 02/26/18 History of Present Illness: The patient is a 58 year old white female originally from [place] visiting the local 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 She was [...] % (Auto) 68.6, Lymph % (Auto) 23.0, Forrest % (Auto) 4.8, Eos % (Auto) 2.9, [...] with the patient, Dr. Bateman of the [facility] emergency department staff, and Dr. Villanueva of the [facility] staff. Dragon disclaimer 02/26/18 1838 <Electronically signed by Lukas Salcedo MD> Date Lukas Salcedo MD Cosigner Signature (if applicable): Date CC: No Primary Care Physician Signed CHEST WITH CONTRAST Observed: 02/26/2018 Status: F Source: [place] 6:32 PM [facility] REPOSITORY [facility] Imaging Services [address] [place], [place] [address] [place] [address] Chest WITH Contrast MR#: [id number] Acct: [id number] Name: RADHAMES RUBIN Rep #: [id number] : 1960 F 58 From: Blane Almonte MD PCP: Care Physician, No Primary Status: ADM IN Study: Chest WITH Contrast Date of Exam: 02/26/18 Exam# [id number] Ordering Dr: Lukas Salcedo MD STUDY: CTA [...] No Primary Care Physician; Lukas Salcedo MD Inventory Administrator: Signed HISTORY AND PHYSICAL Observed: 02/26/2018 Status: F Source: [place] EXAM 6:02 PM [facility] REPOSITORY [facility] Medical Records Department [address] [place] [address] History and Physical 02/26/18 6375 MR#: [id number] Acct: [id number] Name: RADHAMES RUBIN Rep #: [id number] : 1960 58 From: Saima Villanueva MD PCP: Care Physician, No Primary Status: REG CLI Y Location: [facility] Problem List (1) Unstable angina [...] x2. 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 This note was generated with SciApsation software. It may contain incorrect words, spelling, and punctuation that were not noted in checking the note before signing. Code Visit Inpatient E AND M: 72263 Init Hosp L3 02/26/18 1802 <Electronically signed by Saima Villanueva MD> Date Saima Villanueva MD Cosigner Signature: Date (if applicable) CC: No Primary Care Physician; Saima Villanueva Signed CHEST 1 VIEW Observed: 02/26/2018 Status: F Source: [place] (PORTABLE) 3:12 PM [facility] REPOSITORY [facility] Imaging Services [address] [facility] [place] [address] Chest 1 View (Portable) MR#: [id number] Acct: [id number] Name: RADHAMES RUBIN Rep #: [id number] : 1960 F 58 From: Monty Quiros MD PCP: Care Physician, No Primary Status: REG ER Study: Chest 1 View (Portable) Date of Exam: 02/26/18 Exam# [id number] Ordering Dr: Kate Bateman MD STUDY: X-RAY [...] Monty Quiros MD at 15:34 EST Tel [phone], Service support , CC: No Primary Care Physician; Kate Bateman MD Inventory Administrator: Signed CBC W/DIFF, AUTOMATED Collected: 02/26/2018 Status: F Source: [place] 3:05 PM [facility] REPOSITORY TYPE CODE TESTS RESULT OUT OF [...] Lymph 1.59 Performed By: #### L100.0100 #### [facility] Laboratory [address] [place] [place], [address] BASIC METABOLIC Collected: 02/26/2018 Status: F Source: [place] PROFILE (BMP) 3:05 PM [facility] REPOSITORY TYPE CODE TESTS RESULT OUT OF [...] 13 Performed By: #### L500.2500, L501.4010 #### [facility] Laboratory [address] [facility] [address] [place], [place], [id number] TROPONIN-I Collected: 02/26/2018 Status: F Source: [place] 3:05 PM [facility] REPOSITORY TYPE CODE TESTS RESULT OUT OF RANGE REFERENCE UNITS LAB L501.4010 <0.045 ng/mL Normal < 0.015 TROPONIN-I Result Comment: TROPONIN-I EXPECTED VALUES <0.045 Negative 0.045 - 0.590 Consistent with Cardiac Damage > OR = 0.600 Critical Value Not every elevated troponin is indicative of VT. These values should be used with clinical judgement in examining the patient's clinical picture for diagnosis. To establish a diagnosis of VT versus myocardial injury, there must be a demonstrated rise and/or fall in the troponin values, in addition to ischemic symptoms, EKG changes, new regional wall motion abnormality, and/or angiographical evidence. PLEASE NOTE: REFERENCE RANGES EDITED 17 Performed By: #### L500.2500, L501.4010 #### [facility] Laboratory [address] [place], [address] D-DIMER QUANTITATIVE Collected: 02/26/2018 Status: F Source: [place] (DVT/PE) 3:05 PM [facility] REPOSITORY TYPE CODE TESTS RESULT OUT OF RANGE REFERENCE UNITS LAB L300.8000 0.27-0.49 FEU/ug/m Normal D-DIMER 0.29 QUANT Result Comment: NORMAL D-Dimer level (<0.50) indicates no DVT or PE. Performed By: #### L300.8000 #### [facility] Laboratory [address] [place], [place], [address] ALLERGIES ALLERGIES DATE TYPE / CODE NAME / CODE REACTION SEVERITY SOURCE 02/26/2018 Drug No Known Unknown [facility] Allergy/4160 Allergies/F00 Hospital 50932(SNOMED 5456378(RXNOR Repository CT) M) ENCOUNTERS ENCOUNTERS ADMIT/DISCHARGE ACCOUNT ADMITTING ENCOUNTER LOCATION SOURCE NUMBER CLASS 02/26/2018/ [id number] [facility] Ambulatory [place] [facility]PC[facility]oom: Repository [id number]: 1 02/26/[id number] [facility], Ambulatory BMSBuilding:B [place] 4 Ghasem [facility] Repository 02/26/2018 [id number] Ambulatory BMSBuilding:B [place] 2 MS.[facility] Repository PAYERS PAYERS ENCOUNTER GUARANTOR PAYER SUBSCRIBER SOURCE 02/26/2018 RADHAMES Murray RADHAMES [place] [id number] Insurance:ANTHEMPolic AVANTDOB: [facility], [place] y Number: [id number] Hospital [address]Wln: (405) [id number] Repository [phone] () Date:7137-06-34[address], [place] [address]LR: 02/26/2018 Secondary NOT GIVENUNK [place] Insurance:SELF PAY [facility] Number: Effective Repository Date:2018-02-26 02/26/2018 RADHAMES Cornejo Primary RADHAMES Cornejo [place] [id number] Insurance:ANTHEMPolic AVANTDOB: [place], [place] y Number: [id number] Hospital [address]Lue: (405) [id number] Repository [phone] () Date:9267-01-27[address], [place] [address]UY: 02/26/2018 Secondary NOT GIVENUNK [place] Insurance:SELF PAY [facility] Number: Effective Repository Date:2018-02-26 02/26/2018 RADHAMES Corneoj Primary RADHAMES Eugene [id number] Insurance:ANTHEMPolic AVANTDOB: [facility] [place] y Number: [id number] Hospital [address]Luc: (405) [id number] Repository [phone] () Date:[id number], [place] [address]SY: 02/26/2018 Secondary NOT GIVENUNK [place] Insurance:SELF PAY [facility] Number: Effective Repository Date:2018-02-26
== END 2018-02-27 13:54 | disposition home or self-care (01) ==
LOC: ED 15:45 → CLSP 17:38 → PCU 02-27 06:32
PROVIDERS: Internal Medicine Cardiovascular Disease; Admitting Provider Hospitalist; Emergency Provider Emergency Medicine; Visit Provider Internal Medicine
DX: I20.0 Unstable angina (principal); I10 Essential (primary) hypertension; E87.6 Hypokalemia; R94.31 Abnormal electrocardiogram [ECG] [EKG]; Z79.899 Other long term (current) drug therapy; Z79.82 Long term (current) use of aspirin
CPT/HCPCS: 36415; 71045; 71260; 76705; 80048; 80053; 80061; 80076; 82150; 83690; 84484; 85025; 85027; 85379; 93005; 93306; 93458; 96361; 96365; 96366; 96367; 96375; 96376; 99152; 99218; 99285; J7030; J7040; Q9967; A4216; C1769; C1894; G0378; J2405